=== PATIENT | female | born 1955 | race Caucasian/White ===

== ENCOUNTER 2021-09-27 06:02 | Observation (INO) | payer MEDICARE ==
[2021-09-27] MEDS ORDERED: ASPIRIN 81 MG PO STA (06:10)
[2021-09-27] MEDS ORDERED: HEPARIN SODIUM 1,000 UN/ML (10ML VL) IV PRN (06:33)
[2021-09-27] MEDS ORDERED: HEPARIN SODIUM 1,000 UN/ML (10ML VL) IV ONE (06:33)
[2021-09-27] MEDS ORDERED: DILTIAZEM DRIP BOLUS FROM BAG 1 MG SOLN IV ONE (06:34)
[2021-09-27 06:37] LABS: Basophils # (A) 0.2 k/uL (0-0.2); Basophils % (A) 1 %; Eosinophils # (A) 0.3 k/uL (0-0.7); Eosinophils % (A) 2 %; HCT 46.1 % (34.0-46.0); HGB 15.2 gm/dL (11.4-16.0); Lymphocytes % (A) 18 %; MCH 30.6 pg (25.0-35.0); MCV 92.9 fL (80.0-100.0); Mean Platelet Volume 7.4; Monocytes # (A) 0.8 k/uL (0-1.0); Monocytes % (A) 5 %; Neutrophils # (A) 12.2 k/uL (1.3-7.7); Neutrophils % (A) 73 %; Platelet Count 288 k/uL (150-450); RBC 4.96 m/uL (3.80-5.40); RDW 13.1 % (11.5-15.5); WBC 16.7 k/uL (3.8-10.6)
[2021-09-27] MEDS ORDERED: DILTIAZEM 125 MG in SODIUM CHLORIDE 0.9% 100 ML IV SCH (06:45)
--- NOTE | 2021-09-27 06:45 | ED ---
Chest Pain HPI - General Chief Complaint: Chest Pain Stated Complaint: Chest pain Time Seen by Provider: 09/27/21 06:02 Source: patient, RN notes reviewed Mode of arrival: wheelchair Limitations: no limitations - History of Present Illness Initial Comments: This a 66-year-old female presents emergency Department chief complaint of chest pain, palpitations. Patient states that she woke up a few hours ago felt like her heart was racing felt some pressure in excess states that she felt short of breath. She states she does have a history of PVCs which cause states she sometimes. She states it felt a little worse and she had more pressure and shortness of breath than usual. Patient states it does seem to wax and wane she try to get up and walk around but did not makes symptoms better. She denies any pain rating to her back or jaw. She does state that she takes atenolol, losartan and a statin. Patient denies any nausea vomiting no leg pain or leg swelling. Patient has no history of irregular heartbeat patient has had no prior myocardial infarction - Related Data Home Medications Medication Instructions Recorded Confirmed Cyanocobalamin (Vitamin B-12) 1,000 mcg PO DAILY 09/27/21 09/27/21 [Vitamin B-12] Losartan [Cozaar] 25 mg PO DAILY 09/27/21 09/27/21 Meloxicam [Mobic] 7.5 mg PO BID PRN 09/27/21 09/27/21 Multivitamins, Thera [Multivitamin 1 tab PO DAILY 09/27/21 09/27/21 (formulary)] Rosuvastatin Calcium 5 mg PO DAILY 09/27/21 09/27/21 atenoloL [Tenormin] 25 mg PO DAILY 09/27/21 09/27/21 Allergies Allergy/AdvReac Type Severity Reaction Status Date / Time ciprofloxacin [From Cipro] Allergy Unknown Verified 09/27/21 07:21 Iodinated Contrast Media Allergy Rash/Hives Verified 09/27/21 07:21 iodine Allergy Rash/Hives Verified 09/27/21 07:21 morphine Allergy Rash/Hives Verified 09/27/21 07:21 phenazopyridine Allergy Unknown Verified 09/27/21 07:21 [From Pyridium] tetanus and diphtheria Allergy Rash/Hives Verified 09/27/21 07:21 toxoids Influenza Virus Vaccines AdvReac Unknown Verified 09/27/21 07:21 Review of Systems ROS Statement: Those systems with pertinent positive or pertinent negative responses have been documented in the HPI. ROS Other: All systems not noted in ROS Statement are negative. EKG Findings - EKG Comments: EKG Findings:: EKG performed at 6:28 atrial fibrillation with RVR rate of 141 QRS 83 QT/QTC 292/374 Past Medical History Past Medical History: Cancer, Chest Pain / Angina, Hypertension Additional Past Medical History / Comment(s): PVC's, melanoma skin History of Any Multi-Drug Resistant Organisms: None Reported Past Surgical History: Appendectomy, Hysterectomy, Orthopedic Surgery Past Psychological History: No Psychological Hx Reported Smoking Status: Never smoker Past Alcohol Use History: None Reported Past Drug Use History: None Reported General Exam Limitations: no limitations General appearance: alert, in no apparent distress Head exam: Present: atraumatic, normocephalic, normal inspection Eye exam: Present: normal appearance, PERRL, EOMI. Absent: scleral icterus, conjunctival injection, periorbital swelling ENT exam: Present: normal exam, normal oropharynx, mucous membranes moist Neck exam: Present: normal inspection, full ROM. Absent: tenderness, meningismus, lymphadenopathy Respiratory exam: Present: normal lung sounds bilaterally. Absent: respiratory distress, wheezes, rales, rhonchi, stridor Cardiovascular Exam: Present: tachycardia, irregular rhythm, normal heart sounds. Absent: regular rate, normal rhythm, systolic murmur, diastolic murmur, rubs, gallop, clicks Extremities exam: Absent: pedal edema Neurological exam: Present: alert, oriented X3 Skin exam: Present: warm, dry, intact, normal color. Absent: rash Course Vital Signs 09/27/21 09/27/21 06:03 07:04 Temperature 98.6 F Pulse Rate 115 H 77 Respiratory 16 18 Rate Blood Pressure 136/88 106/84 O2 Sat by Pulse 97 94 L Oximetry Chest Pain MDM - MDM 66-year-old presented for chest pain palpitations. Patient is found to be in A. fib with RVR, rate of 141 patient's was ordered heparin bolus, confusion along with Cardizem bolus and infusion. Patient did ultimately convert to normal sinus rhythm at this time. She is left on Cardizem low dose. Patient's labwork reveals no significant findings. Patiently admitted for cardiology evaluation, echocardiogram Critical Care Time Critical Care Time: Yes Total Critical Care Time: 35 Disposition Clinical Impression: New onset atrial fibrillation, Atrial fibrillation with RVR, Chest pain Disposition: ADMITTED IP TO THIS HOSP Condition: Fair Referrals: Alfredo De La Fuente DO [Primary Care Provider] - 1-2 days
[2021-09-27] MEDS: HEPARIN SOD,PORK IN 0.45% NACL 25,000 UNIT in 0.45% NACL 1 250ML.BAG IV SCH (06:46)
[2021-09-27 06:47] LABS: INR 0.9 (<1.2); Prothrombin Time 10.2 sec (9.0-12.0)
[2021-09-27 07:10] LABS: ALT 41 U/L (4-34); African American GFR (CKD) >90 (>60 ml/min/1.73 sqM); Anion Gap 9 mmol/L; Blood Urea Nitrogen 19 mg/dL (7-17); Calcium 9.8 mg/dL (8.4-10.2); Carbon Dioxide 25 mmol/L (22-30); Chloride 104 mmol/L (98-107); Glucose 183 mg/dL (74-99); Lipase 112 U/L (23-300); Non-African American GFR(CKD) >90 (>60 ml/min/1.73 sqM); Sodium 138 mmol/L (137-145)
--- NOTE | 2021-09-27 07:15 | XR ---
EXAMINATION TYPE: XR chest 2V DATE OF EXAM: 09/27/2021 COMPARISON: None HISTORY: 66-year-old female with chest pain TECHNIQUE: PA and lateral views FINDINGS: Heart upper limits of normal in size. Mild atherosclerotic arch calcifications. Some strandy atelecta sis in the lower lungs. No consolidation or pleural effusion. IMPRESSION: Borderline heart size. Some strandy basilar areas of atelectasis. No acute process seen.
[2021-09-27 07:16] LABS: AST 53 U/L (14-36); Albumin 4.5 g/dL (3.5-5.0); Magnesium 1.9 mg/dL (1.6-2.3); Potassium 5.1 mmol/L (3.5-5.1); Total Protein 8.1 g/dL (6.3-8.2)
[2021-09-27 07:17] LABS: Alkaline Phosphatase 81 U/L (38-126)
[2021-09-27] MEDS ORDERED: NITROGLYCERIN SL TABS 0.4 MG TAB SUBLINGUAL PRN (08:33)
[2021-09-27] MEDS ORDERED: NALOXONE 0.4 MG/ML 1 ML VIAL IVP PRN (10:17)
--- NOTE | 2021-09-27 10:37 | P.HPIM ---
History of Present Illness H&P Date: 09/27/21 History of Presenting Illness: Patient is a a very pleasant 66-year-old female with a past medical history of hypertension, hyperlipidemia, and melanoma. She presented to the emergency department with a chief complaint of chest pressure, neck pain, shortness of breath, and palpitations. Patient reports upon awakening she felt pressure to her midsternal chest, difficulty catching her breath and a feeling as though her heart was racing out of her chest. Patient states she is intermittently been experiencing palpitations and pain in her neck over the past 3 weeks, she states she believed she thought these were her PVCs that she has a history of PVCs in about 3 weeks ago drinks some tea not realizing and had caffeine and has since been experiencing what she thought to be intermittent PVCs along with some neck pain. Patient reports today was different as upon awakening she first noticed pressure in her chest accompanied by pain in her neck, difficulty catching her b reath and realize that her heart was racing. She denies having any recent infections, fevers, chills, headache, lightheadedness, dizziness, nausea, vomiting, or experiencing any numbness/tingling/weakness in her extremities. Patient underwent full evaluation in the emergency department. CBC showing leukocytosis with WBC count of 16.7, CMP revealing slight elevation of AST of 53 and ALT of 41. Troponin negative at less than 0.012. ProBNP 258. Coags normal findings. Chest x-ray revealing borderline heart size and some strandy basilar areas of atelectasis, but negative for acute cardiopulmonary process. EKG completed revealing A. fib RVR at 141 bpm. patient was started on IV heparin and Cardizem infusion. Patient converted back into normal sinus rhythm with repeat EKG confirming sinus rhythm at 77 bpm with no noted T-wave or ST abnormalities, showing no signs of acute ischemia. Patient converted back into normal sinus rhythm, she reports significant improvement in chest pressure/neck pain but reports still feeling some underlying discomfort in which she currently rates as 2-3/10 and again just describes as a pressure/achiness. Patient is admitted under our services with consult cardiology. Review of systems: Pertinent positives and negatives as discussed in HPI, a complete review of systems was performed and all other systems are negative. Physical exam: Vital signs reviewed and stable. General: Nontoxic, no distress and appears stated age. Derm: Skin warm and dry, normal coloration for ethnicity. Head: Atraumatic, normocephalic and symmetric. Eyes: EOMs intact, no lid lag, and anicteric sclera Mouth: no lip lesions, mucus membranes moist Cardiovascular: regular rate and rhythm with normal S1S2, no murmur, positive posterior tibial pulses bilaterally, and cap refill < 2 seconds. Lungs: Respirations even, regular, and unlabored on room air. Lungs CTA b ilaterally, no rhonchi, no rales, no wheezing, and no accessory muscle usage. Abdominal: soft, nontender to palpation, no guarding, no appreciable organomegaly Ext: ROM intact. No gross muscle atrophy, no edema, no contractures Neuro: Speech clear, face symmetrical and CN II-XII grossly intact with no noted focal neuro deficits Psych: Alert and oriented to person, place, time, and situation. Appropriate and pleasant affect. Assessment and Plan of Care: Atrial fibrillation with RVR, new onset Chest pressure, shortness of breath, and palpitations likely secondary to above -Initial EKG completed revealing A. fib RVR at 141 bpm. -Troponin negative at less than 0.012. We will trend troponins every 3 hours 2. -Anticoagulation with Heparin infusion, Eliquis prescription was sent to [facility] for gonzalez check -Cardizem infusion, patient started on oral Cardizem 30 mg 4 times a day and Cardizem infusion to be stopped 30 minutes after receiving first oral dose. -Echocardiogram to be completed. -Telemetry monitoring -Cardiology consulted, awaiting recommendations Hypertension -Monitor vital signs and continue daily medication regimen with atenolol and losartan. Hyperlipidemia -Continue daily medication regimen with atorvastatin 10 mg daily The patient is admitted with an anticipated less than 2 midnight stay for evaluation of chest pain, palpitations with diagnosis of new onset A. fib RVR. CODE STATUS: Full code DVT prophylaxis: Heparin Discussed with: Patient, patient's , and RN Anticipated discharge date: Tomorrow morning Anticipated discharge place: Home A total of 44 minutes was spent on the care of this complex patient more than 50% of the time was spent in counseling and care coordination. I reviewed the documentation as provided by the HELDER above, who is the original author of this note. I agree with the documented assessment and plan, with the following changes: None Past Medical History Past Medical History: Cancer, Chest Pain / Angina, Hypertension Additional Past Medical History / Comment(s): PVC's, melanoma skin History of Any Multi-Drug Resistant Organisms: None Reported Past Surgical History: Appendectomy, Hysterectomy, Orthopedic Surgery Past Psychological History: No Psychological Hx Reported Smoking Status: Never smoker Past Alcohol Use History: None Reported Past Drug Use History: None Reported - Past Family History Father Family Medical History: Coronary Artery Disease (CAD) Additional Family Medical History / Comment(s): CABG Mother Family Medical History: Coronary Artery Disease (CAD) Additional Family Medical History / Comment(s): CABG Medications and Allergies Home Medications Medication Instructions Recorded Confirmed Type Apixaban [Eliquis Starter Pack 5 - 10 mg PO DIRECTED 30 Days 09/27/21 Rx (for VTE)] #1 each Cyanocobalamin (Vitamin B-12) 1,000 mcg PO DAILY 09/27/21 09/27/21 History [Vitamin B-12] Losartan [Cozaar] 25 mg PO DAILY 09/27/21 09/27/21 History Meloxicam [Mobic] 7.5 mg PO BID PRN 09/27/21 09/27/21 History Multivitamins, Thera [Multivitamin 1 tab PO DAILY 09/27/21 09/27/21 History (formulary)] Rosuvastatin Calcium 5 mg PO DAILY 09/27/21 09/27/21 History atenoloL [Tenormin] 25 mg PO DAILY 09/27/21 09/27/21 History Allergies Allergy/AdvReac Type Severity Reaction Status Date / Time ciprofloxacin [From Cipro] Allergy Unknown Verified 09/27/21 07:21 Iodinated Contrast Media Allergy Rash/Hives Verified 09/27/21 07:21 iodine Allergy Rash/Hives Verified 09/27/21 07:21 morphine Allergy Rash/Hives Verified 09/27/21 07:21 phenazopyridine Allergy Unknown Verified 09/27/21 07:21 [From Pyridium] tetanus and diphtheria Allergy Rash/Hives Verified 09/27/21 07:21 toxoids Influenza Virus Vaccines AdvReac Unknown Verified 09/27/21 07:21 Physical Exam Osteopathic Statement: *. No significant issues noted on an osteopathic structural exam other than those noted in the History and Physical/Consult. Vitals: Vital Signs Temp Pulse Resp BP Pulse Ox 09/27/21 07:04 77 18 106/84 94 L 09/27/21 06:03 98.6 F 115 H 16 136/88 97 Intake and Output 09/26/21 09/27/21 09/27/21 22:59 06:59 14:59 Other: Weight 120.202 kg Results CBC & Chem 7: 09/27/21 06:27 09/27/21 06:27 Labs: Abnormal Lab Results - Last 24 Hours (Table) 09/27/21 09/27/21 Range/Units 06:27 06:27 WBC 16.7 H (3.8-10.6) k/uL Hct 46.1 H (34.0-46.0) % Neutrophils # 12.2 H (1.3-7.7) k/uL BUN 19 H (7-17) mg/dL Glucose 183 H (74-99) mg/dL AST 53 H (14-36) U/L ALT 41 H (4-34) U/L
[2021-09-27] MEDS: DILTIAZEM ORAL 30 MG TAB PO SCH ×2 (10:50→14:13)
--- NOTE | 2021-09-27 11:41 | ECHOF ---
Referral Reason: MEASUREMENTS -------- HEIGHT: 170.2 cm WEIGHT: 120.2 kg BP: RVIDd: 3.0 cm (< 3.3) IVSd: 1.3 cm (0.6 - 1.1) LVIDd: 3.8 cm (3.9 - 5.3) LVPWd: 1.7 cm (0.6 - 1.1) IVSs: 1.5 cm LVIDs: 2.5 cm LVPWs: 1.7 cm LAESV Index (A-L): 23.27 ml/m Ao Diam: 4.0 cm (2.0 - 3.7) AV Cusp: 2.5 cm (1.5 - 2.6) LA Diam: 4.0 cm (2.7 - 3.8) MV E Ryan: 0.45 m/s MV DecT: 208 ms MV A Ryan: 0.58 m/s MV E/A Ratio: 0.77 RAP: 5.00 mmHg RVSP: 28.23 mmHg FINDINGS -------- Sinus rhythm. This was a technically difficult study with suboptimal views. The left ventricular size is normal. There is mild concentric left ventricular hypertrophy. Overa ll left ventricular systolic function is normal with, an EF between 55 - 60 %. The right ventricle is normal in size. Normal LA size by volume 22+/-6 ml/m2. The right atrium was not well visualized. 5.0mg of Lumason was utilized for enhancement of images The aortic valve was not well visualized. There is no evidence of aortic regurgitation. There is no evidence of aortic stenosis. The mitral valve was not well visualized. Mild mitral regurgitation is present. The tricuspid valve was not well visualized. Mild tricuspid regurgitation present. There is no ev idence of pulmonary hypertension. The right ventricular systolic pressure, as measured by Doppler, is 28.23mmHg. The pulmonic valve was not well visualized. There is no pulmonic regurgitation present. The aortic root is mildy dilated. IVC Not well visulized. Echo free space represents a pericardial fat pad. CONCLUSIONS -------- 1. This was a technically difficult study with suboptimal views. 2. There is mild concentric left ventricular hypertrophy. 3. Overall left ventricular systolic function is normal with, an EF between 55 - 60 %. 4. The aortic valve was not well visualized. 5. Mild mitral regurgitation is present. 6. Mild tricuspid regurgitation present. 7. The aortic root is mildy dilated. STRATEGIC ACCOUNTS MANAGER: Nan Gunn RDCS
[2021-09-27] MEDS ORDERED: DILTIAZEM ORAL 30 MG TAB PO STA (15:01)
[2021-09-27] MEDS: DILTIAZEM ORAL 60 MG TAB PO SCH ×2 (18:27→21:40)
[2021-09-27 19:45] LABS: Glucose,Whole Blood 307 mg/dL (75-99)
[2021-09-28 03:45] LABS: HCT 41.7 % (34.0-46.0); HGB 13.4 gm/dL (11.4-16.0); MCH 30.3 pg (25.0-35.0); MCHC 32.1 g/dL (31.0-37.0); MCV 94.4 fL (80.0-100.0); Mean Platelet Volume 7.4; Platelet Count 243 k/uL (150-450); RBC 4.42 m/uL (3.80-5.40); RDW 13.3 % (11.5-15.5); WBC 12.6 k/uL (3.8-10.6)
[2021-09-28 04:05] LABS: Partial Thromboplastin Time 65.7 sec (22.0-30.0); Prothrombin Time 10.9 sec (9.0-12.0)
[2021-09-28 04:18] LABS: ALT 30 U/L (4-34); AST 31 U/L (14-36); African American GFR (CKD) >90 (>60 ml/min/1.73 sqM); Albumin 3.7 g/dL (3.5-5.0); Alkaline Phosphatase 73 U/L (38-126); Anion Gap 8 mmol/L; Blood Urea Nitrogen 18 mg/dL (7-17); Calcium 9.2 mg/dL (8.4-10.2); Carbon Dioxide 24 mmol/L (22-30); Chloride 103 mmol/L (98-107); Glucose 176 mg/dL (74-99); Non-African American GFR(CKD) >90 (>60 ml/min/1.73 sqM); Potassium 4.4 mmol/L (3.5-5.1); Sodium 135 mmol/L (137-145); Total Bilirubin 0.8 mg/dL (0.2-1.3); Total Protein 6.4 g/dL (6.3-8.2)
[2021-09-28] MEDS: HEPARIN SOD,PORK IN 0.45% NACL 25,000 UNIT in 0.45% NACL 1 250ML.BAG IV SCH (05:17)
[2021-09-28 06:09] LABS: Glucose,Whole Blood 182 mg/dL (75-99)
[2021-09-28] MEDS ORDERED: atenoloL 25 MG TAB PO SCH (09:00)
[2021-09-28] MEDS ORDERED: ASPIRIN 325 MG TAB PO SCH (09:00)
[2021-09-28] MEDS: ATORVASTATIN 10 MG TAB PO SCH (09:33)
[2021-09-28] MEDS: LOSARTAN 25 MG TAB PO SCH (09:33)
[2021-09-28] MEDS: DILTIAZEM ORAL 60 MG TAB PO SCH (09:33)
[2021-09-28] MEDS: APIXABAN 5 MG TAB PO SCH ×2 (09:33→20:38)
[2021-09-28 10:49] LABS: LDL Cholesterol,Calculated 40.3 mg/dL (0.0-131.0)
[2021-09-28] MEDS: FLECAINIDE 50 MG TAB PO SCH ×2 (11:00→20:37)
[2021-09-28 11:46] LABS: Glucose,Whole Blood 155 mg/dL (75-99)
--- NOTE | 2021-09-28 11:55 | P.CRDCN ---
History of Present Illness History of present illness: HISTORY OF PRESENTING ILLNESS This is a [id number] female past medical history significant for hypertension, hyperlipidemia, PVCs, and melanoma. 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 We have been asked to see in consultation for atrial fibrillation with rapid ventricular response. Patient presents emergency department with complaints of chest pain, neck pain, shortness of breath and palpitations. Patient states that yesterday she woke up around 3AM and felt pressure/heaviness in upper chest and jaw. She states she felt some mild short of breath and also fluttering/palpitations. She has been experiencing intermittent palpitations and pain in her neck for the past 3 weeks, thought it was her PVCs like she has had in the past. She states this was worse than prior and presented to the emergency department for further evaluation. Patient was initially started on IV Ca rdizem. Given 10mg IV Bolus and started on drip 5mg/hr. and IV heparin. She was transitioned to PO Cardizem, currently on 60mg QID. She converted to normal sinus rhythm overnight. Former smoker quit in her 20s. She denies any alcohol use or illicit drug use. She states her does tell her she snores, she states she doesnt sleep well but attributes it to insomnia not a breathing issue. She denies any history of CAD, CT, stroke, diabetes. States she is a pre- diabetic prior. Family history includes mother had an CT with CABG in her 60s, father with his first CT at 55 and has had stenting and CABG. Sister recently had a CABG she is in her late 60s. DIAGNOSTICS EKG reveals atrial fibrillation with rapid ventricular response, heart rate 141. Repeat EKG in sinus rhythm HR 83, nonspecific ST-T abnormalities in lead III, no acute ischemia noted. Echo revealed EF 55-60%, no significant wall motion abnormalities Telemetry tracings indicate sinus mechanism HR 70s-80s Chest xray no acute cardiopulmonary process Laboratory reviewed, troponin negative, WBC 12.6, hemoglobin 13.4, platelets 243, sodium 135, potassium 4.4, BUN 18, serum crit 0.5 Current home medications include atenolol 25 mg daily, rosuvastatin 5 mg daily, losartan 25 mg daily REVIEW OF SYSTEMS At the time of my exam: CONSTITUTIONAL: Denies fever or chills. CARDIOVASCULAR: Denies chest pain, shortness of breath, orthopnea, PND or palpitations. RESPIRATORY: Denies cough. GASTROINTESTINAL: Denies abdominal pain, diarrhea, constipation, nausea or vomiting. MUSCULOSKELETAL: Denies myalgias. NEUROLOGIC: Denies numbness, tingling, headacbe or weakness. ENDOCRINE: Denies fatigue, weight change, polydipsia or polyurina. GENITOURINARY: Denies burning, hematuria or urgency with micturation. HEMATOLOGIC: Denies history of anemia or bleeding. PHYSICAL EXAMINATION Vitals Reviewed CONSTITUTIONAL: No apparent distress. HEENT: Head is normocephalic. Pupils are equal, round. Sclerae anicteric. Mucous membranes of the mouth are moist. No JVD. No carotid bruit. CHEST EXAMINATION: Lungs are clear to auscultation. No chest wall tenderness is noted on palpation or with deep breathing. HEART EXAMINATION: Regular rate and rhythm. S1, S2 heard. No murmurs, gallops or rub. ABDOMEN: Soft, nontender. Positive bowel sounds. EXTREMITIES: 2+ peripheral pulses, no lower extremity edema and no calf tenderness. SKIN: warm, dry NEUROLOGIC EXAMINATION: Patient is awake, alert and oriented x3. ASSESSMENT New onset paroxysmal atrial fibrillation with rapid ventricular response -[id number] score 3 History of hypertension Dyslipidemia History of frequent PVCs PLAN Check TSH Recommend discontinuing cardizem Increase atenolol 50mg daily Start Flecainide 100mg BID Eliquis 5mg BID, Case management consulted for coverage, $43.50/month copay Repeat EKG in the morning 09/29/21 Continue Cardiac telemetry If patient remains stable and EKG with no acute findings in the morning, ok to discharge on 09/29/21. Follow up outpatient with Dr. Dixon Nurse practitioner note has been reviewed by physician. Signing provider agrees with the documented findings, assessment, and plan of care. Past Medical History Past Medical History: Cancer, Chest Pain / Angina, Hypertension Additional Past Medical History / Comment(s): PVC's, melanoma skin History of Any Multi-Drug Resistant Organisms: None Reported Past Surgical History: Appendectomy, Hysterectomy, Orthopedic Surgery Additional Past Surgical History / Comment(s): Melanoma removed R lower leg, bilateral total knee arthroplasties, L ear surgery d/t injury as a child, bladder suspension, colonoscopy/polypectomy. Past Anesthesia/Blood Transfusion Reactions: No Reported Reaction Past Psychological History: No Psychological Hx Reported Smoking Status: Never smoker Past Alcohol Use History: None Reported Past Drug Use History: None Reported - Past Family History Father Family Medical History: Coronary Artery Disease (CAD) Additional Family Medical History / Comment(s): CABG Mother Family Medical History: Coronary Artery Disease (CAD) Additional Family Medical History / Comment(s): CABG Medications and Allergies Home Medications Medication Instructions Recorded Confirmed Type Cyanocobalamin (Vitamin B-12) 1,000 mcg PO DAILY 09/27/21 09/27/21 History [Vitamin B-12] Losartan [Cozaar] 25 mg PO DAILY 09/27/21 09/27/21 History Multivitamins, Thera [Multivitamin 1 tab PO DAILY 09/27/21 09/27/21 History (formulary)] Rosuvastatin Calcium 5 mg PO DAILY 09/27/21 09/27/21 History atenoloL [Tenormin] 25 mg PO DAILY 09/27/21 09/27/21 History Apixaban [Eliquis] 5 mg PO BID 30 Days #60 tab 09/28/21 Rx Diltiazem Cd [Cardizem CD] 240 mg PO DAILY 30 Days #30 cap 09/28/21 Rx Allergies Allergy/AdvReac Type Severity Reaction Status Date / Time ciprofloxacin [From Cipro] Allergy Unknown Verified 09/27/21 07:21 Iodinated Contrast Media Allergy Rash/Hives Verified 09/27/21 07:21 iodine Allergy Rash/Hives Verified 09/27/21 07:21 morphine Allergy Rash/Hives Verified 09/27/21 07:21 phenazopyridine Allergy Unknown Verified 09/27/21 07:21 [From Pyridium] tetanus and diphtheria Allergy Rash/Hives Verified 09/27/21 07:21 toxoids Influenza Virus Vaccines AdvReac Unknown Verified 09/27/21 07:21 Physical Exam Vitals: Vital Signs Temp Pulse Pulse Resp BP BP Pulse Ox 09/27/21 12:00 97.6 F 116 H 18 120/77 95 09/27/21 11:07 101 H 18 97 09/27/21 10:48 98.0 F 90 18 121/95 96 09/27/21 07:04 77 18 106/84 94 L 09/27/21 06:03 98.6 F 115 H 16 136/88 97 Intake and Output 09/26/21 09/27/21 09/27/21 22:59 06:59 14:59 Intake Total 74.007 Balance 74.007 Intake: Intake, IV Titration 74.007 Amount Heparin Sod,Pork in 0.45% 74.007 NaCl 25,000 unit In 0.45 % NaCl 1 250ml.bag @ 8.32 UNITS/KG/HR 10.001 mls/ hr IV .Q24H [facility] Rx#: [id number] Other: Weight 120.202 kg 120.202 kg Results 09/28/21 03:23 09/28/21 03:23 Cardiac Enzymes 09/27/21 09/27/21 09/27/21 Range/Units 06:27 06:27 10:04 AST 53 H (14-36) U/L Troponin I <0.012 <0.012 (0.000-0.034) ng/mL 09/27/21 Range/Units 12:00 AST (14-36) U/L Troponin I <0.012 (0.000-0.034) ng/mL Coagulation 09/27/21 09/27/21 Range/Units 06:27 12:00 PT 10.2 (9.0-12.0) sec APTT 24.0 33.8 H (22.0-30.0) sec CBC 09/27/21 Range/Units 06:27 WBC 16.7 H (3.8-10.6) k/uL RBC 4.96 (3.80-5.40) m/uL Hgb 15.2 (11.4-16.0) gm/dL Hct 46.1 H (34.0-46.0) % Plt Count 288 (150-450) k/uL Comprehensive Metabolic Panel 09/27/21 Range/Units 06:27 Sodium 138 (137-145) mmol/L Potassium 5.1 (3.5-5.1) mmol/L Chloride 104 (98-107) mmol/L Carbon Dioxide 25 (22-30) mmol/L BUN 19 H (7-17) mg/dL Creatinine 0.55 (0.52-1.04) mg/dL Glucose 183 H (74-99) mg/dL Calcium 9.8 (8.4-10.2) mg/dL AST 53 H (14-36) U/L ALT 41 H (4-34) U/L Alkaline Phosphatase 81 (38-126) U/L Total Protein 8.1 (6.3-8.2) g/dL Albumin 4.5 (3.5-5.0) g/dL Current Medications Generic Name Dose Route Start Last Admin Trade Name Freq PRN Reason Stop Dose Admin Aspirin 325 mg 09/28/21 09:00 Aspirin 325 Mg Tab PO DAILY [facility] Atenolol 25 mg 09/28/21 09:00 Atenolol 25 Mg Tab PO DAILY [facility] Atorvastatin Calcium 10 mg 09/28/21 09:00 Atorvastatin 10 Mg Tab PO DAILY [facility] Diltiazem HCl 30 mg 09/27/21 10:18 09/27/21 14:13 Diltiazem Oral 30 Mg Tab PO 30 mg QID [facility] Administration Heparin Sodium (Porcine) 0 unit 09/27/21 06:33 Heparin Sodium 1,000 Un/Ml (10ml Vl) IV PER PROTOCOL PRN Low PTT Protocol Heparin Sodium/Sodium Chloride 250 mls @ 10.001 mls/hr 09/27/21 06:45 09/27/21 14:10 25,000 unit/ Sodium Chloride IV 11 units/kg/hr .Q24H [facility] 13.222 mls/hr Titration Protocol 8.32 UNITS/KG/HR Losartan Potassium 25 mg 09/28/21 09:00 Losartan 25 Mg Tab PO DAILY [facility] Naloxone HCl 0.2 mg 09/27/21 10:17 Naloxone 0.4 Mg/Ml 1 Ml Vial IVP Q2M PRN Opioid Reversal Nitroglycerin 0.4 mg 09/27/21 08:33 Nitroglycerin Sl Tabs 0.4 Mg Tab SUBLINGUAL Q5M PRN Chest Pain Intake and Output 09/26/21 09/27/21 09/27/21 22:59 06:59 14:59 Intake Total 74.007 Balance 74.007 Intake: Intake, IV Titration 74.007 Amount Heparin Sod,Pork in 0.45% 74.007 NaCl 25,000 unit In 0.45 % NaCl 1 250ml.bag @ 8.32 UNITS/KG/HR 10.001 mls/ hr IV .Q24H [facility] Rx#: [id number] Other: Weight 120.202 kg 120.202 kg Patient Weight 09/28/21 06:59 Weight 120.202 kg 09/27/21 06:27 09/27/21 06:27
--- NOTE | 2021-09-28 13:14 | P.PN ---
Subjective Progress Note Date: 09/28/21 Hospital course: Patient is a a very pleasant 66-year-old female with a past medical history of hypertension, hyperlipidemia, and melanoma. She presented to the emergency department with a chief complaint of chest pressure, neck pain, shortness of breath, and palpitations. Patient reports upon awakening she felt pressure to her midsternal chest, difficulty catching her breath and a feeling as though her heart was racing out of her chest. Patient states she is intermittently been experiencing palpitations and pain in her neck over the past 3 weeks, she states she believed she thought these were her PVCs that she has a history of PVCs in about 3 weeks ago drinks some tea not realizing and had caffeine and has since been experiencing what she thought to be intermittent PVCs along with some neck pain. Patient reports today was different as upon awakening she first noticed pressure in her chest accompanied by pain in her neck, difficulty catching her breath and realize that her heart was racing. She denies having any recent infections, fevers, chills, headache, lightheadedness, dizziness, nausea, vomiting, or experiencing any numbness/tingling/weakness in her extremities. Patient underwent full evaluation in the emergency department. CBC showing leukocytosis with WBC count of 16.7, CMP revealing slight elevation of AST of 53 and ALT of 41. Troponin negative at less than 0.012. ProBNP 258. Coags normal findings. Chest x-ray revealing borderline heart size and some strandy basilar areas of atelectasis, but negative for acute cardiopulmonary process. EKG co mpleted revealing A. fib RVR at 141 bpm. patient was started on IV heparin and Cardizem infusion. Patient converted back into normal sinus rhythm with repeat EKG confirming sinus rhythm at 77 bpm with no noted T-wave or ST abnormalities, showing no signs of acute ischemia. Patient was then started on oral Cardizem and Cardizem infusion was discontinued. Patient also transitioned over to oral anticoagulant with Eliquis. Patient maintaining sinus rhythm and doing well. Echocardiogram showing normal EF between 55 and 60% with mild mitral and tricuspid regurgitation. Lipid profile unremarkable. Cardiology evaluated and made medication changes, starting patient on flecainide and discontinuing oral Cardizem and recommending continued overnight monitoring secondary to medication changes. Physical exam: Patient seen and fully evaluated at bedside this morning. Patient doing well she remains in sinus rhythm with heart rate in the 80s. Patient reports full resolution of chest pain, neck pain, palpitations, and shortness of breath. Patient reports feeling great this morning and denies having any needs. Cardiology evaluated recommending medication changes and started patient on oral flecainide. Plan is to monitor patient overnight with continued telemetry monitoring with plans for discharge home tomorrow morning. Vital signs reviewed and stable. General: Nontoxic, no distress and appears stated age. Derm: Skin warm and dry, normal coloration for ethnicity. Head: Atraumatic, normocephalic and symmetric. Eyes: EOMs intact, no lid lag, and anicteric sclera Mouth: no lip lesions, mucus membranes moist Cardiovascular: regular rate and rhythm with normal S1S2, no murmur, positive posterior tibial pulses bilaterally, and cap refill < 2 seconds. Lungs: Respirations even, regular, and unlabored on room air. Lungs CTA bilaterally, no rhonchi, no rales, no wheezing, and no accessory muscle usage. Abdominal: soft, nontender to palpation, no guarding, no appreciable organomegaly Ext: ROM intact. No gross muscle atrophy, no edema, no contractures Neuro: Speech clear, face symmetrical and CN II-XII grossly intact with no noted focal neuro deficits Psych: Alert and oriented to person, place, time, and situation. Appropriate and pleasant affect. Assessment and Plan of Care: Atrial fibrillation with RVR, new onset Chest pressure, shortness of breath, and palpitations likely secondary to above; resolved -Initial EKG completed revealing A. fib RVR at 141 bpm. -Troponina trended and negative at less than 0.012 x 3 draws. -Transitioned to oral Anticoagulation with Eliquis. -Cardiology following and discontinued Cardizem and started patient on oral flecainide and recommending continued overnight monitoring. -Echocardiogram revealing EF 55-60% with no significant valvular abnormalities. -Telemetry monitoring Hypertension -Monitor vital signs and continue daily medication regimen with atenolol and losartan. Hyperlipidemia -Continue daily medication regimen with atorvastatin 10 mg daily -Lipid profile unremarkable CODE STATUS: Full code DVT prophylaxis: Heparin Discussed with: Patient, patient's , and RN Anticipated discharge date: Tomorrow morning Anticipated discharge place: Home A total of 38 minutes was spent on the care of this complex patient more than 50% of the time was spent in counseling and care coordination. I reviewed the documentation as provided by the HELDER above, who is the original author of this note. I agree with the documented assessment and plan, with the following changes: None Objective - Vital Signs Vital signs: Vital Signs Temp 98.6 F 09/28/21 07:43 Pulse 85 09/28/21 07:43 Resp 20 09/28/21 07:43 BP 120/75 09/28/21 07:43 Pulse Ox 95 09/28/21 07:43 Intake & Output 09/27/21 09/28/21 09/28/21 18:59 06:59 18:59 Intake Total 432.007 245.993 240 Balance 432.007 245.993 240 Weight 120.202 kg Intake: IV 70 Heparin Sod,Pork in 0.45% 70 NaCl 25,000 unit In 0.45 % NaCl 1 250ml.bag @ 8.32 UNITS/KG/HR 10.001 mls/ hr IV .Q24H [facility] Rx#: [id number] Intake, IV Titration 74.007 175.993 Amount Heparin Sod,Pork in 0.45% 74.007 175.993 NaCl 25,000 unit In 0.45 % NaCl 1 250ml.bag @ 8.32 UNITS/KG/HR 10.001 mls/ hr IV .Q24H [facility] Rx#: [id number] Oral 358 240 Other: Voiding Method Toilet Toilet Toilet # Voids 2 - Labs CBC & Chem 7: 09/28/21 03:23 09/28/21 03:23 Labs: Abnormal Lab Results - Last 24 Hours (Table) 09/27/21 09/27/21 09/28/21 Range/Units 12:00 19:44 03:23 WBC (3.8-10.6) k/uL APTT 33.8 H 65.7 H (22.0-30.0) sec Sodium (137-145) mmol/L BUN (7-17) mg/dL Glucose (74-99) mg/dL POC Glucose (mg/dL) 307 H (75-99) mg/dL 09/28/21 09/28/21 09/28/21 Range/Units 03:23 03:23 06:07 WBC 12.6 H (3.8-10.6) k/uL APTT (22.0-30.0) sec Sodium 135 L (137-145) mmol/L BUN 18 H (7-17) mg/dL Glucose 176 H (74-99) mg/dL POC Glucose (mg/dL) 182 H (75-99) mg/dL
[2021-09-28 16:50] LABS: Glucose,Whole Blood 140 mg/dL (75-99)
[2021-09-28 19:53] LABS: Glucose,Whole Blood 160 mg/dL (75-99)
[2021-09-28 21:13] VITALS: RESP 18
[2021-09-29 05:55] LABS: Glucose,Whole Blood 179 mg/dL (75-99)
--- NOTE | 2021-09-29 07:56 | P.DS ---
Providers Date of admission: 09/27/21 08:37 Expected date of discharge: 09/29/21 Attending physician: Ysabel Hubbard DO Consults: 09/27/21 08:33 Consult Physician Urgent Consulting Provider: Damon Salvador Consult Reason/Comments: new onset afib Do you want consulting provider notified?: Yes Primary care physician: [facility] Hospital Course: Discharge Diagnosis: Atrial fibrillation with RVR, new onset. Patient started on oral anticoagulant with Eliquis, antiarrhythmic flecainide and home atenolol dose was increased. Hypertension, Monitor vital signs and continue daily medication regimen with atenolol and losartan. Hyperlipidemia, Continue daily medication regimen with atorvastatin 10 mg daily Hospital Course: Patient is a a very pleasant 66-year-old female with a past medical history of hypertension, hyperlipidemia, and melanoma. She presented to the emergency department with a chief complaint of chest pressure, neck pain, shortness of breath, and palpitations. Patient reports upon awakening she felt pressure to her midsternal chest, difficulty catching her breath and a feeling as though her heart was racing out of her chest. Patient states she is intermittently been experiencing palpitations and pain in her neck over the past 3 weeks, she states she believed she thought these were her PVCs that she has a history of PVCs in about 3 weeks ago drinks some tea not realizing and had caffeine and has since been experiencing what she thought to be intermittent PVCs along with some neck pain. Patient reports today was different as upon awakening she first noticed pressure in her chest accompanied by pain in her neck, difficulty catching her breath and realize that her heart was racing. She denies having any recent infections, fevers, chills, headache, lightheadedness, dizziness, nausea, vomiting, or experiencing any numbness/tingling/weakness in her extremities. Patient underwent full evaluation in the emergency department. CBC showing leukocytosis with WBC count of 16.7, CMP revealing slight elevation of AST of 53 and ALT of 41. Troponin negative at less than 0.012. ProBNP 258. Coags normal findings. Chest x-ray revealing borderline heart size and some strandy basilar areas of atelectasis, but negative for acute cardiopulmonary process. EKG completed revealing A. fib RVR at 141 bpm. patient was started on IV heparin and Cardizem infusion. Patient converted back into normal sinus rhythm with repeat EKG confirming sinus rhythm at 77 bpm with no noted T-wave or ST abnormalities, showing no signs of acute ischemia. Patient was then started on oral Cardizem and Cardizem infusion was discontinued. Patient also transitioned over to oral anticoagulant with Eliquis. Patient maintaining sinus rhythm and doing well. Echocardiogram showing normal EF between 55 and 60% with mild mitral and tricuspid regurgitation. Lipid profile unremarkable. Cardiology evaluated and made medication changes, discontinuing Cardizem and starting patient on flecainide and increasing home atenolol dose. Patient received continued monitoring overnight and remains in normal sinus rhythm and doing well. Patient is free from any chest pain, palpitations, shortness of breath, or dizziness. Patient is medically stable for discharge home at this time. Patient provided with a prescription for atenolol, flecainide, and Eliquis. Physical exam: Vital signs reviewed and stable. General: Nontoxic, no distress and appears stated age. Derm: Skin warm and dry, normal coloration for ethnicity. Head: Atraumatic, normocephalic and symmetric. Eyes: EOMs intact, no lid lag, and anicteric sclera Mouth: no lip lesions, mucus membranes moist Cardiovascular: regular rate and rhythm with normal S1S2, no murmur, positive posterior tibial pulses bilaterally, and cap refill < 2 seconds. Lungs: Respirations even, regular, and unlabored on room air. Lungs CTA bilaterally, no rhonchi, no rales, no wheezing, and no accessory muscle usage. Abdominal: soft, nontender to palpation, no guarding, no appreciable o rganomegaly Ext: ROM intact. No gross muscle atrophy, no edema, no contractures Neuro: Speech clear, face symmetrical and CN II-XII grossly intact with no noted focal neuro deficits Psych: Alert and oriented to person, place, time, and situation. Appropriate and pleasant affect. A total of 40 minutes of time were spent preparing this complex discharge summary. Patient Condition at Discharge: Stable Plan - Discharge Summary Discharge Rx Participant: No New Discharge Prescriptions: New Flecainide [Tambocor] 100 mg PO Q12HR 30 Days #120 tab atenoloL [Tenormin] 50 mg PO DAILY 30 Days #30 tab Apixaban [Eliquis] 5 mg PO BID 30 Days #60 tab Continue Multivitamins, Thera [Multivitamin (formulary)] 1 tab PO DAILY Losartan [Cozaar] 25 mg PO DAILY Rosuvastatin Calcium 5 mg PO DAILY Cyanocobalamin (Vitamin B-12) [Vitamin B-12] 1,000 mcg PO DAILY Discontinued atenoloL [Tenormin] 25 mg PO DAILY Meloxicam [Mobic] 7.5 mg PO BID PRN PRN Reason: Pain Discharge Medication List Cyanocobalamin (Vitamin B-12) [Vitamin B-12] 1,000 mcg PO DAILY 09/27/21 [History] Losartan [Cozaar] 25 mg PO DAILY 09/27/21 [History] Multivitamins, Thera [Multivitamin (formulary)] 1 tab PO DAILY 09/27/21 [H istory] Rosuvastatin Calcium 5 mg PO DAILY 09/27/21 [History] Apixaban [Eliquis] 5 mg PO BID 30 Days #60 tab 09/28/21 [Rx] Flecainide [Tambocor] 100 mg PO Q12HR 30 Days #120 tab 09/29/21 [Rx] atenoloL [Tenormin] 50 mg PO DAILY 30 Days #30 tab 09/29/21 [Rx] Follow up Appointment(s)/Referral(s): Alfredo De La Fuente DO [Primary Care Provider] - 1-2 days Светлана Dixon MD [STAFF PHYSICIAN] - 1 Week Patient Instructions/Handouts: Flecainide (By mouth), Apixaban (By mouth), A- fib (Atrial Fibrillation) (ED) Activity/Diet/Wound Care/Special Instructions: Activity: As tolerated. Take breaks as needed. Diet: Heart healthy and carb consistent diet. Avoid salts, or foods with hidden salts such as canned or boxed foods and frozen dinners. Extra salt makes your heart work harder and traps the fluid in your body for longer. Special Instructions: Take all of your medications as directed and remember to keep all of your doctor's appointments and follow-up as needed. You will follow up with your PCP, Dr. De La Fuente, in 1-2 days and with air brush artist Dr. Dixon in 2 weeks. Thank you for allowing us to participate in your care, it was truly a pleasure having you for our patient!!! Copay for Eliquis is $43.50 Discharge Disposition: HOME SELF-CARE
[2021-09-29 08:22] VITALS: BP 130/77; PULSE 88; TEMP 98
[2021-09-29] MEDS: FLECAINIDE 50 MG TAB PO SCH (09:00)
[2021-09-29] MEDS: ATORVASTATIN 10 MG TAB PO SCH (09:00)
[2021-09-29] MEDS: APIXABAN 5 MG TAB PO SCH (09:00)
[2021-09-29] MEDS ORDERED: atenoloL 50 MG TAB PO SCH (09:00)
[2021-09-29] MEDS: LOSARTAN 25 MG TAB PO SCH (09:01)
--- NOTE | 2021-09-29 11:29 | P.PN ---
Subjective This is a [id number] female past medical history significant for hypertension, hyperlipidemia, PVCs, and melanoma. 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 We have been asked to see in consultation for atrial fibrillation with rapid ventricular response. Patient presents emergency department with complaints of chest pain, neck pain, shortness of breath and palpitations. Patient states that yesterday she woke up around 3AM and felt pressure/heaviness in upper chest and jaw. She states she felt some mild short of breath and also fluttering/palpitations. She has been experiencing intermittent palpitations and pain in her neck for the past 3 weeks, thought it was her PVCs like she has had in the past. She states this was worse than prior and presented to the emergency department for further evaluation. Patient was initially started on IV Cardizem. Given 10mg IV Bolus and started on drip 5mg/hr. and IV heparin. She was transitioned to PO Cardizem, currently on 60mg QID. She converted to normal sinus rhythm overnight. Former smoker quit in her 20s. She denies any alcohol use or illicit drug use. She states her does tell her she snores, she states she doesnt sleep well but attributes it to insomnia not a breathing issue. She denies any history of CAD, TN, stroke, diabetes. States she is a pre- diabetic prior. Family history includes mother had an TN with CABG in her 60s, father with his first TN at 55 and has had stenting and CABG. Sister recently had a CABG she is in her late 60s. DIAGNOSTICS EKG reveals atrial fibrillation with rapid ventricular response, heart rate 141. Repeat EKG in sinus rhythm HR 83, nonspecific ST-T abnormalities in lead III, no acute ischemia noted. Echo revealed EF 55-60%, no significant wall motion abnormalities 09/29/2021 Patient seen and examined at bedside, no acute distress. She is maintaining sinus mechanism with heart rate 70s80s, repeat EKG this morning revealed sinus mechanism, heart rate 74, T wave inversion in lead III, QTc 428, AK interval normal. Blood pressures are stable 130/77. She is tolerating flecainide 100mg BID well, also on atenolol 50mg daily, rosuvastatin 5 mg daily, losartan 25 mg daily PHYSICAL EXAMINATION Vitals Reviewed CONSTITUTIONAL: No apparent distress. HEENT: Neck Supple. No JVD. CHEST EXAMINATION: Lungs are clear to auscultation. No chest wall tenderness is noted on palpation or with deep breathing. HEART EXAMINATION: Regular rate and rhythm. S1, S2 heard. No murmurs, gallops or rub. ABDOMEN: Soft, nontender. Positive bowel sounds. EXTREMITIES: 2+ peripheral pulses, no lower extremity edema and no calf tenderness. SKIN: warm, dry NEUROLOGIC EXAMINATION: Patient is awake, alert and oriented x3. ASSESSMENT New onset paroxysmal atrial fibrillation with rapid ventricular response -[id number] score 3, maintaining sinus mechanism, on Eliquis History of hypertension Dyslipidemia History of frequent PVCs PLAN Continue atenolol 50mg daily and Flecainide 100mg BID Eliquis 5mg BID, Case management consulted for coverage, $43.50/month copay From cardiology perspective patient stable to be discharged home. Follow up outpatient with Dr. Dixon Nurse practitioner note has been reviewed by physician. Signing provider agrees with the documented findings, assessment, and plan of care. Objective - Vital Signs Vital signs: Vital Signs Temp 98.0 F 09/29/21 08:00 Pulse 88 09/29/21 08:00 Resp 18 09/29/21 08:00 BP 130/77 09/29/21 08:00 Pulse Ox 94 L 09/29/21 08:00 Intake & Output 09/28/21 09/29/21 09/29/21 18:59 06:59 18:59 Intake Total 462 10 480 Balance 462 10 480 Intake: IV 10 0.9 10 Oral 462 480 Other: Voiding Method Toilet Toilet Toilet # Voids 2 1 - Labs CBC & Chem 7: 09/28/21 03:23 09/28/21 03:23 Labs: Abnormal Lab Results - Last 24 Hours (Table) 09/28/21 09/28/21 09/28/21 Range/Units 11:43 16:45 19:51 POC Glucose (mg/dL) 155 H 140 H 160 H (75-99) mg/dL 09/29/21 Range/Units 05:54 POC Glucose (mg/dL) 179 H (75-99) mg/dL
== END 2021-09-29 11:38 | disposition home or self-care (01) ==
LOC: EC 06:02 → INTOOBSV 08:37 → 3SCARD 08:37
PROVIDERS: ADMIT Internal Medicine; ATTEND Internal Medicine
DX: I48.0 Paroxysmal atrial fibrillation (principal); R07.89 Other chest pain; I11.9 Hypertensive heart disease without heart failure; I08.1 Rheumatic disorders of both mitral and tricuspid valves; I49.3 Ventricular premature depolarization; J98.11 Atelectasis; E78.5 Hyperlipidemia, unspecified; M54.2 Cervicalgia; R73.03 Prediabetes; R74.01 Elevation of levels of liver transaminase levels; D72.829 Elevated white blood cell count, unspecified; G47.00 Insomnia, unspecified; R06.83 Snoring; Z79.1 Long term (current) use of non-steroidal anti-inflammatories (NSAID); Z79.899 Other long term (current) drug therapy; Z88.1 Allergy status to other antibiotic agents; Z91.041 Radiographic dye allergy status; Z88.5 Allergy status to narcotic agent; Z88.7 Allergy status to serum and vaccine; Z88.8 Allergy status to other drugs, medicaments and biological substances; Z91.048 Other nonmedicinal substance allergy status; Z85.820 Personal history of malignant melanoma of skin; Z90.710 Acquired absence of both cervix and uterus; Z90.49 Acquired absence of other specified parts of digestive tract; Z98.890 Other specified postprocedural states; Z87.891 Personal history of nicotine dependence; Z96.653 Presence of artificial knee joint, bilateral; Z86.010 Personal history of colon polyps; Z82.49 Family history of ischemic heart disease and other diseases of the circulatory system
CPT/HCPCS: 96376 ×2; 96366 ×3; 96365; 99291; 36415; 93005; 83880; 80061; 80053 ×2; 84443; 83690; 83735 ×2; 84484; 85025; 85027; 85610 ×2; 85730 ×2; 71046; G0378 ×3; C8929; J1644 ×3; Q9950; 93306

== ENCOUNTER 2021-10-05 10:44 | Observation (INO) | payer MEDICARE ==
--- NOTE | 2021-10-05 11:19 | ED ---
General Adult HPI - General Chief complaint: Arrhythmia/Palpitations Stated complaint: AFib, Chest Pressure, Shortness of Breath Time Seen by Provider: 10/05/21 10:50 Source: patient, RN notes reviewed, old records reviewed Mode of arrival: ambulatory Limitations: no limitations - History of Present Illness Initial comments: This is a 66-year-old female presents emergency department stating that she was recently diagnosis of atrial fibrillation. Patient states she was started on flecainide and Cardizem and had her atenolol increased. Patient states today her heart rate got down to the 40 and went up as high as 109 per patient states she has a pressure sensation with some shortness of breath associated with it. Patient states even though her heart rate is normal now she still has chest pressure some shortness of breath though it's not as bad as it was earlier today. Patient also is on eliquis. Patient denies any fever chills or cough per patient denies any abdominal pain patient has nausea vomiting diarrhea. - Related Data Home Medications Medication Instructions Recorded Confirmed Cyanocobalamin (Vitamin B-12) 1,000 mcg PO DAILY 09/27/21 10/05/21 [Vitamin B-12] Losartan [Cozaar] 25 mg PO DAILY 09/27/21 10/05/21 Multivitamins, Thera [Multivitamin 1 tab PO DAILY 09/27/21 10/05/21 (formulary)] Rosuvastatin Calcium 5 mg PO DAILY 09/27/21 10/05/21 Previous Rx's Medication Instructions Recorded Apixaban [Eliquis] 5 mg PO BID 30 Days #60 tab 09/28/21 Flecainide [Tambocor] 100 mg PO Q12HR 30 Days #120 tab 09/29/21 atenoloL [Tenormin] 50 mg PO DAILY 30 Days #30 tab 09/29/21 Allergies Allergy/AdvReac Type Severity Reaction Status Date / Time ciprofloxacin [From Cipro] Allergy Unknown Verified 10/05/21 13:08 Iodinated Contrast Media Allergy Rash/Hives Verified 10/05/21 13:08 iodine Allergy Rash/Hives Verified 10/05/21 13:08 morphine Allergy Rash/Hives Verified 10/05/21 13:08 phenazopyridine Allergy Unknown Verified 10/05/21 13:08 [From Pyridium] tetanus and diphtheria Allergy Rash/Hives Verified 10/05/21 13:08 toxoids Influenza Virus Vaccines AdvReac Unknown Verified 10/05/21 13:08 Review of Systems ROS Statement: Those systems with pertinent positive or pertinent negative responses have been documented in the HPI. ROS Other: All systems not noted in ROS Statement are negative. Past Medical History Past Medical History: Atrial Fibrillation, Cancer, Chest Pain / Angina, Hypertension Additional Past Medical History / Comment(s): PVC's, melanoma skin History of Any Multi-Drug Resistant Organisms: None Reported Past Surgical History: Appendectomy, Hysterectomy, Orthopedic Surgery Additional Past Surgical History / Comment(s): Melanoma removed R lower leg, bilateral total knee arthroplasties, L ear surgery d/t injury as a child, bladder suspension, colonoscopy/polypectomy. Past Anesthesia/Blood Transfusion Reactions: No Reported Reaction Past Psychological History: No Psychological Hx Reported Smoking Status: Never smoker Past Alcohol Use History: None Reported Past Drug Use History: None Reported - Past Family History Father Family Medical History: Coronary Artery Disease (CAD) Additional Family Medical History / Comment(s): CABG Mother Family Medical History: Coronary Artery Disease (CAD) Additional Family Medical History / Comment(s): CABG General Exam - General Exam Comments Initial Comments: GENERAL: Patient is well-developed and well-nourished. Patient is nontoxic and well- hydrated and is in mild distress. ENT: Neck is soft and supple. No significant lymphadenopathy is noted. Oropharynx is clear. Moist mucous membranes. Neck has full range of motion without eliciting any pain. EYES: The sclera were anicteric and conjunctiva were pink and moist. Extraocular movements were intact and pupils were equal round and reactive to light. Eyelids were unremarkable. PULMONARY: Unlabored respirations. Good breath sounds bilaterally. CARDIOVASCULAR: There is a regular rate and rhythm without any murmurs gallops or rubs. ABDOMEN: Soft and nontender with normal bowel sounds. No palpable organomegaly was noted. There is no palpable pulsatile mass. SKIN: Skin is clear with no lesions or rashes and otherwise unremarkable. NEUROLOGIC: Patient is alert and oriented x3. Cranial nerves II through XII are grossly intact. Motor and sensory are also intact. Normal speech, volume and content. Symmetrical smile. MUSCULOSKELETAL: Normal extremities with adequate strength and full range of motion. LYMPHATICS: No significant lymphadenopathy is noted PSYCHIATRIC: Normal psychiatric evaluation. Limitations: no limitations Course Vital Signs 10/05/21 10/05/21 10/05/21 10:48 11:00 11:07 Temperature 98.5 F Pulse Rate 50 L 64 Pulse Rate [ 63 Underwriting Consultant ] Respiratory 20 18 Rate Blood Pressure 221/148 146/81 O2 Sat by Pulse 97 98 Oximetry 10/05/21 12:27 Temperature Pulse Rate 61 Pulse Rate [ Underwriting Consultant ] Respiratory 18 Rate Blood Pressure 128/74 O2 Sat by Pulse 96 Oximetry Medical Decision Making - Medical Decision Making EKG shows sinus rhythm at 63 bpm NM interval is 190 QRS is 92 QT interval 450 QTC is 423. Patient's EKG shows no ST segment elevation or depression Chest x-ray shows no acute abnormality. Patient continued to have chest pain which she described as pressure in the emergency department even though she was in sinus rhythm and in the 60s heart rate I spoke with Dr. Hubbard she agreed to admit the patient admitted the patient wrote admitting orders. - Lab Data Result diagrams: 10/05/21 11:27 10/05/21 11:27 Lab Results 10/05/21 10/05/21 10/05/21 Range/Units 11:27 11:27 11:27 WBC 12.3 H (3.8-10.6) k/uL RBC 5.02 (3.80-5.40) m/uL Hgb 14.8 (11.4-16.0) gm/dL Hct 46.5 H (34.0-46.0) % MCV 92.5 (80.0-100.0) fL MCH 29.4 (25.0-35.0) pg MCHC 31.8 (31.0-37.0) g/dL RDW 13.3 (11.5-15.5) % Plt Count 330 (150-450) k/uL MPV 7.2 Neutrophils % 71 % Lymphocytes % 21 % Monocytes % 4 % Eosinophils % 2 % Basophils % 1 % Neutrophils # 8.7 H (1.3-7.7) k/uL Lymphocytes # 2.6 (1.0-4.8) k/uL Monocytes # 0.5 (0-1.0) k/uL Eosinophils # 0.3 (0-0.7) k/uL Basophils # 0.1 (0-0.2) k/uL PT 10.5 (9.0-12.0) sec INR 1.0 (<1.2) APTT 26.2 (22.0-30.0) sec Sodium 137 (137-145) mmol/L Potassium 4.7 (3.5-5.1) mmol/L Chloride 102 (98-107) mmol/L Carbon Dioxide 26 (22-30) mmol/L Anion Gap 9 mmol/L BUN 18 H (7-17) mg/dL Creatinine 0.66 (0.52-1.04) mg/dL Est GFR (CKD-EPI)AfAm >90 (>60 ml/min/1.73 sqM) Est GFR (CKD-EPI)NonAf >90 (>60 ml/min/1.73 sqM) Glucose 183 H (74-99) mg/dL Calcium 9.7 (8.4-10.2) mg/dL Magnesium 2.0 (1.6-2.3) mg/dL Total Bilirubin 0.6 (0.2-1.3) mg/dL AST 44 H (14-36) U/L ALT 42 H (4-34) U/L Alkaline Phosphatase 82 (38-126) U/L Troponin I (0.000-0.034) ng/mL Total Protein 7.6 (6.3-8.2) g/dL Albumin 4.5 (3.5-5.0) g/dL TSH 2.620 (0.465-4.680) mIU/L 10/05/21 Range/Units 11:27 WBC (3.8-10.6) k/uL RBC (3.80-5.40) m/uL Hgb (11.4-16.0) gm/dL Hct (34.0-46.0) % MCV (80.0-100.0) fL MCH (25.0-35.0) pg MCHC (31.0-37.0) g/dL RDW (11.5-15.5) % Plt Count (150-450) k/uL MPV Neutrophils % % Lymphocytes % % Monocytes % % Eosinophils % % Basophils % % Neutrophils # (1.3-7.7) k/uL Lymphocytes # (1.0-4.8) k/uL Monocytes # (0-1.0) k/uL Eosinophils # (0-0.7) k/uL Basophils # (0-0.2) k/uL PT (9.0-12.0) sec INR (<1.2) APTT (22.0-30.0) sec Sodium (137-145) mmol/L Potassium (3.5-5.1) mmol/L Chloride (98-107) mmol/L Carbon Dioxide (22-30) mmol/L Anion Gap mmol/L BUN (7-17) mg/dL Creatinine (0.52-1.04) mg/dL Est GFR (CKD-EPI)AfAm (>60 ml/min/1.73 sqM) Est GFR (CKD-EPI)NonAf (>60 ml/min/1.73 sqM) Glucose (74-99) mg/dL Calcium (8.4-10.2) mg/dL Magnesium (1.6-2.3) mg/dL Total Bilirubin (0.2-1.3) mg/dL AST (14-36) U/L ALT (4-34) U/L Alkaline Phosphatase (38-126) U/L Troponin I <0.012 (0.000-0.034) ng/mL Total Protein (6.3-8.2) g/dL Albumin (3.5-5.0) g/dL TSH (0.465-4.680) mIU/L Disposition Clinical Impression: Chest pain, Bradycardia Disposition: [facility] Referrals: Alfredo De La Fuente DO [Primary Care Provider] - 1-2 days Time of Disposition: 13:15
[2021-10-05 11:35] LABS: Basophils # (A) 0.1 k/uL (0-0.2); Basophils % (A) 1 %; Eosinophils # (A) 0.3 k/uL (0-0.7); Eosinophils % (A) 2 %; HCT 46.5 % (34.0-46.0); HGB 14.8 gm/dL (11.4-16.0); Lymphocytes # (A) 2.6 k/uL (1.0-4.8); Lymphocytes % (A) 21 %; MCH 29.4 pg (25.0-35.0); MCHC 31.8 g/dL (31.0-37.0); MCV 92.5 fL (80.0-100.0); Mean Platelet Volume 7.2; Monocytes # (A) 0.5 k/uL (0-1.0); Monocytes % (A) 4 %; Neutrophils # (A) 8.7 k/uL (1.3-7.7); Neutrophils % (A) 71 %; Platelet Count 330 k/uL (150-450); RBC 5.02 m/uL (3.80-5.40); RDW 13.3 % (11.5-15.5); WBC 12.3 k/uL (3.8-10.6)
[2021-10-05 11:43] LABS: Partial Thromboplastin Time 26.2 sec (22.0-30.0); Prothrombin Time 10.5 sec (9.0-12.0)
[2021-10-05 11:49] LABS: ALT 42 U/L (4-34); AST 44 U/L (14-36); African American GFR (CKD) >90 (>60 ml/min/1.73 sqM); Albumin 4.5 g/dL (3.5-5.0); Alkaline Phosphatase 82 U/L (38-126); Anion Gap 9 mmol/L; Blood Urea Nitrogen 18 mg/dL (7-17); Calcium 9.7 mg/dL (8.4-10.2); Carbon Dioxide 26 mmol/L (22-30); Chloride 102 mmol/L (98-107); Glucose 183 mg/dL (74-99); Non-African American GFR(CKD) >90 (>60 ml/min/1.73 sqM); Potassium 4.7 mmol/L (3.5-5.1); Sodium 137 mmol/L (137-145); Total Bilirubin 0.6 mg/dL (0.2-1.3); Total Protein 7.6 g/dL (6.3-8.2)
--- NOTE | 2021-10-05 11:53 | XR ---
EXAMINATION TYPE: XR chest 1V portable DATE OF EXAM: 10/05/2021 Comparison: 09/27/2021 Clinical History: 66-year-old female dysrhythmia Findings: Low lung volumes and crowded vascular markings. Also, limitation due to the large patient body habitu s resulting in hazy densities. Heart borderline enlarged. The mild strandy atelectasis in the lower l ungs. No sharmaine consolidation or pleural effusion. Impression: Borderline cardiomegaly and hypoventilatory changes. Allowing for limitations from portable technique and large body habitus, no definite acute process.
[2021-10-05] MEDS ORDERED: NITROGLYCERIN SL TABS 0.4 MG TAB SUBLINGUAL PRN (13:32)
--- NOTE | 2021-10-05 14:12 | P.HPIM ---
History of Present Illness H&P Date: 10/05/21 History of Presenting Illness: Patient is a very pleasant 66-year-old female with a past medical history of hypertension, hyperlipidemia, melanoma, and recently diagnosed atrial f ibrillation on oral anticoagulation with Eliquis. She presented to the emergency department with a chief complaint of chest pressure and shortness of breath and concerns that her heart rate went down into the 40s and back up into the 110s and she was concerned that she was back into atrial fibrillation. Patient recently hospitalized 09/27/21 through 09/29/21 where she was diagnosed with new onset atrial fibrillation with RVR started on oral anticoagulant with Eliquis, antiarrhythmic flecainide and home atenolol dose was increased. Patient seen and fully evaluated at the bedside and continues to report mild pressure-like sensation to midsternal chest. She currently denies experiencing any headache, lightheadedness, dizziness, palpitations, shortness of breath, nausea, or experiencing any numbness/tingling/weakness in her extremities. She underwent full evaluation in the emergency department. EKG was completed confirming patient converted back into normal sinus rhythm at 63 bpm. Chest x- ray revealing borderline cardiomegaly and hypoventilatory changes, negative for acute cardiopulmonary process. CBC revealing mild leukocytosis with WBC count of 12.3 and CMP showing no significant abnormalities. TSH normal findings at 2.6-0. Initial troponin less than 0.012. Patient was admitted under our services with consultation to cardiology. Review of systems: Pertinent positives and negatives as discussed in HPI, a complete review of systems was performed and all other systems are negative. Physical exam: Vital signs reviewed and stable. General: Nontoxic, no distress and appears stated age. Derm: Skin warm and dry, normal coloration for ethnicity. Head: Atraumatic, normocephalic and symmetric. Eyes: EOMs intact, no lid lag, and anicteric sclera Mouth: no lip lesions, mucus membranes moist Cardiovascular: regular rate and rhythm with normal S1S2, no murmur, positive posterior tibial pulses bilaterally, and cap refill < 2 seconds. Lungs: Respirations even, regular, and unlabored on room air. Lungs CTA bilaterally, no rhonchi, no rales, no wheezing, and no accessory muscle usage. Abdominal: soft, nontender to palpation, no guarding, no appreciable organomega ly Ext: ROM intact. No gross muscle atrophy, no edema, no contractures Neuro: Speech clear, face symmetrical and CN II-XII grossly intact with no noted focal neuro deficits Psych: Alert and oriented to person, place, time, and situation. Appropriate and pleasant affect. Assessment and Plan of Care: Chest pressure, shortness of breath, and palpitations Paroxysmal Atrial fibrillation -EKG revealing normal sinus rhythm. -We will trend troponins -Patient to continue oral anticoagulant with Eliquis, antiarrhythmic flecainide and atenolol -Telemetry monitoring -Cardiology following, appreciate further recommendations. Hypertension -Monitor vital signs and continue daily medication regimen with atenolol and losartan. Hyperlipidemia -Continue daily medication regimen with atorvastatin 10 mg daily -Lipid profile unremarkable The patient is admitted with an anticipated less than 2 midnight stay for evaluation of chest pressure CODE STATUS: Full code DVT prophylaxis: Eliquis Discussed with: Patient and RN Anticipated discharge date: 1-[address]: Home A total of 40 minutes was spent on the care of this complex patient more than 50% of the time was spent in counseling and care coordination. Arvin Donahue NP rendered care for this patient independently, reviewed the findings and plan as documented in the note above. I did not physically speak with or examine the patient on this date. Past Medical History Past Medical History: Atrial Fibrillation, Cancer, Chest Pain / Angina, Hyperte nsion Additional Past Medical History / Comment(s): PVC's, melanoma skin History of Any Multi-Drug Resistant Organisms: None Reported Past Surgical History: Appendectomy, Hysterectomy, Orthopedic Surgery Additional Past Surgical History / Comment(s): Melanoma removed R lower leg, bilateral total knee arthroplasties, L ear surgery d/t injury as a child, bladder suspension, colonoscopy/polypectomy. Past Anesthesia/Blood Transfusion Reactions: No Reported Reaction Past Psychological History: No Psychological Hx Reported Smoking Status: Never smoker Past Alcohol Use History: None Reported Past Drug Use History: None Reported - Past Family History Father Family Medical History: Coronary Artery Disease (CAD) Additional Family Medical History / Comment(s): CABG Mother Family Medical History: Coronary Artery Disease (CAD) Additional Family Medical History / Comment(s): CABG Medications and Allergies Home Medications Medication Instructions Recorded Confirmed Type Cyanocobalamin (Vitamin B-12) 1,000 mcg PO DAILY 09/27/21 10/05/21 History [Vitamin B-12] Losartan [Cozaar] 25 mg PO DAILY 09/27/21 10/05/21 History Multivitamins, Thera [Multivitamin 1 tab PO DAILY 09/27/21 10/05/21 History (formulary)] Rosuvastatin Calcium 5 mg PO DAILY 09/27/21 10/05/21 History Apixaban [Eliquis] 5 mg PO BID 30 Days #60 tab 09/28/21 10/05/21 Rx Flecainide [Tambocor] 100 mg PO Q12HR 30 Days #120 tab 09/29/21 10/05/21 Rx atenoloL [Tenormin] 50 mg PO DAILY 30 Days #30 tab 09/29/21 10/05/21 Rx Allergies Allergy/AdvReac Type Severity Reaction Status Date / Time ciprofloxacin [From Cipro] Allergy Unknown Verified 10/05/21 13:08 Iodinated Contrast Media Allergy Rash/Hives Verified 10/05/21 13:08 iodine Allergy Rash/Hives Verified 10/05/21 13:08 morphine Allergy Rash/Hives Verified 10/05/21 13:08 phenazopyridine Allergy Unknown Verified 10/05/21 13:08 [From Pyridium] tetanus and diphtheria Allergy Rash/Hives Verified 10/05/21 13:08 toxoids Influenza Virus Vaccines AdvReac Unknown Verified 10/05/21 13:08 Physical Exam Osteopathic Statement: *. No significant issues noted on an osteopathic structural exam other than those noted in the History and Physical/Consult. Vitals: Vital Signs Temp Pulse Pulse Resp BP Pulse Ox 10/05/21 12:27 61 18 128/74 96 10/05/21 11:07 64 18 146/81 98 10/05/21 11:00 63 10/05/21 10:48 98.5 F 50 L 20 221/148 97 Intake and Output 10/04/21 10/05/21 10/05/21 22:59 06:59 14:59 Other: Weight 117.027 kg Results CBC & Chem 7: 10/05/21 11:27 10/05/21 11:27 Labs: Abnormal Lab Results - Last 24 Hours (Table) 10/05/21 10/05/21 Range/Units 11:27 11:27 WBC 12.3 H (3.8-10.6) k/uL Hct 46.5 H (34.0-46.0) % Neutrophils # 8.7 H (1.3-7.7) k/uL BUN 18 H (7-17) mg/dL Glucose 183 H (74-99) mg/dL AST 44 H (14-36) U/L ALT 42 H (4-34) U/L
[2021-10-05] MEDS: NITROGLYCERIN OINT 1 INCH/GM PACKET TOPICAL SCH (18:34)
[2021-10-06] MEDS: NITROGLYCERIN OINT 1 INCH/GM PACKET TOPICAL SCH ×2 (00:30→06:16)
[2021-10-06 05:22] VITALS: RESP 18
[2021-10-06] MEDS ORDERED: FLECAINIDE 50 MG TAB PO SCH (09:00)
[2021-10-06] MEDS ORDERED: atenoloL 50 MG TAB PO SCH (09:00)
[2021-10-06] MEDS ORDERED: APIXABAN 5 MG TAB PO SCH (09:00)
[2021-10-06] MEDS ORDERED: ATORVASTATIN 10 MG TAB PO SCH (09:00)
[2021-10-06] MEDS ORDERED: ASPIRIN 325 MG TAB PO SCH (09:00)
[2021-10-06 09:06] VITALS: BP 114/71; PULSE 69; TEMP 97.8
[2021-10-06 09:38] LABS: Chol/HDL Ratio 2.94 Ratio; LDL Cholesterol,Calculated 38.7 mg/dL (0.0-131.0)
--- NOTE | 2021-10-06 10:55 | P.CRDCN ---
History of Present Illness History of present illness: This is a [id number] female past medical history significant for Recent diagnosis of paroxysmal atrial fibrillation on 09/28/21, hypertension, hyperlipidemia, PVCs, and melanoma. She is to follow up with Dr. Dixon. We have been asked to see in consultation for bradycardia and chest pain. Patient presents emergency department with complaints chest pressure and palpitations. She states yesterday she was working from home, sitting at her desk typing and had onset of palpitations, chest pressure. She states she looked at her apple watch and saw her heart rate fluctuating from 40s-110. She states she was not feeling well. She called the cardiology office and patient recom mended go to the ER for further evaluation. EKG on admission, revealed sinus mechanism. Her chest pressure was located in the center of her chest/midsternal. Non- radiating. Non-exertional. She did have some relief with nitroglycerin. She denies any associated nausea, diaphoresis, lightheadedness or dizziness. She recently saw Dr. Dixon in the office on 10/04/21, she was doing well and tolerating her medications well. She was scheduled for an outpatient Lexiscan stress test on 10/22/21. At home she was taking cardizem 240mg daily, atenolol 50mg daily, flecainide 100mg BID, losartan 25mg daily, and Eliquis 5mg BID. She was recently discharged last week for new onset atrial fibrillation with RVR. She was started on IV Cardizem, converted to sinus mechanism and was discharged with atenolol 50mg daily, Flecainide 100mg BID and Eliquis 5mg BID. Recommended at that time that cardizem be discontinued. However, patient states there was a Cardizem prescription for her at the pharmacy and she was taking that medication as well. Former smoker quit in her 20s. She denies any alcohol use or illicit drug use. She states her does tell her she snores, she states she doesnt sleep well but attributes it to insomnia not a breathing issue. She denies any history of CAD, IL, stroke, diabetes. States she is a pre- diabetic prior. Family history includes mother had an IL with CABG in her 60s, father with his first IL at 55 and has had stenting and CABG. Sister recently had a CABG she is in her late 60s. DIAGNOSTICS EKG reveals Echo revealed EF 55-60%, no significant wall motion abnormalities Telemetry tracings indicate sinus mechanism HR 70s-80s Chest xray no acute cardiopulmonary process Laboratory reviewed, Current home medications include REVIEW OF SYSTEMS At the time of my exam: CONSTITUTIONAL: Denies fever or chills. CARDIOVASCULAR: Denies chest pain, shortness of breath, orthopnea, PND or palpitations. RESPIRATORY: Denies cough. GASTROINTESTINAL: Denies abdominal pain, diarrhea, constipation, nausea or vomiting. MUSCULOSKELETAL: Denies myalgias. NEUROLOGIC: Denies numbness, tingling, headacbe or weakness. ENDOCRINE: Denies fatigue, weight change, polydipsia or polyurina. GENITOURINARY: Denies burning, hematuria or urgency with micturation. HEMATOLOGIC: Denies history of anemia or bleeding. PHYSICAL EXAMINATION Vitals Reviewed CONSTITUTIONAL: No apparent distress. HEENT: Head is normocephalic. Pupils are equal, round. Sclerae anicteric. Mucous membranes of the mouth are moist. No JVD. No carotid bruit. CHEST EXAMINATION: Lungs are clear to auscultation. No chest wall tenderness is noted on palpation or with deep breathing. HEART EXAMINATION: Regular rate and rhythm. S1, S2 heard. No murmurs, gallops or rub. ABDOMEN: Soft, nontender. Positive bowel sounds. EXTREMITIES: 2+ peripheral pulses, no lower extremity edema and no calf tend erness. SKIN: warm, dry NEUROLOGIC EXAMINATION: Patient is awake, alert and oriented x3. ASSESSMENT Chest pain, atypical, acute coronary syndrome has been ruled out Paroxysmal atrial fibrillation with rapid ventricular response -[id number] score 3, on Eliquis, currently in sinus mechanism History of hypertension Dyslipidemia History of frequent PVCs PLAN Discontinue cardizem Continue atenolol, Eliquis, flecainide Continue home statin and losartan Follow up outpatient for planned stress test on 10/22/2021 Follow up outpatient with Dr. Dixon in the office from cardiology perspective, patient stable to be discharged home. Nurse practitioner note has been reviewed by physician. Signing provider agrees with the documented findings, assessment, and plan of care. Past Medical History Past Medical History: Atrial Fibrillation, Cancer, Chest Pain / Angina, Hypertension Additional Past Medical History / Comment(s): PVC's, melanoma skin History of Any Multi-Drug Resistant Organisms: None Reported Past Surgical History: Appendectomy, Hysterectomy, Orthopedic Surgery Additional Past Surgical History / Comment(s): Melanoma removed R lower leg, bilateral total knee arthroplasties, L ear surgery d/t injury as a child, bladder suspension, colonoscopy/polypectomy. Past Anesthesia/Blood Transfusion Reactions: No Reported Reaction Past Psychological History: No Psychological Hx Reported Smoking Status: Never smoker Past Alcohol Use History: None Reported Past Drug Use History: None Reported - Past Family History Father Family Medical History: Coronary Artery Disease (CAD) Additional Family Medical History / Comment(s): CABG Mother Family Medical History: Coronary Artery Disease (CAD) Additional Family Medical History / Comment(s): CABG Medications and Allergies Home Medications Medication Instructions Recorded Confirmed Type Cyanocobalamin (Vitamin B-12) 1,000 mcg PO DAILY 09/27/21 10/05/21 History [Vitamin B-12] Losartan [Cozaar] 25 mg PO DAILY 09/27/21 10/05/21 History Multivitamins, Thera [Multivitamin 1 tab PO DAILY 09/27/21 10/05/21 History (formulary)] Rosuvastatin Calcium 5 mg PO DAILY 09/27/21 10/05/21 History Apixaban [Eliquis] 5 mg PO BID 30 Days #60 tab 09/28/21 10/05/21 Rx Flecainide [Tambocor] 100 mg PO Q12HR 30 Days #120 tab 09/29/21 10/05/21 Rx atenoloL [Tenormin] 50 mg PO DAILY 30 Days #30 tab 09/29/21 10/05/21 Rx Allergies Allergy/AdvReac Type Severity Reaction Status Date / Time ciprofloxacin [From Cipro] Allergy Unknown Verified 10/05/21 13:08 Iodinated Contrast Media Allergy Rash/Hives Verified 10/05/21 13:08 iodine Allergy Rash/Hives Verified 10/05/21 13:08 morphine Allergy Rash/Hives Verified 10/05/21 13:08 phenazopyridine Allergy Unknown Verified 10/05/21 13:08 [From Pyridium] tetanus and diphtheria Allergy Rash/Hives Verified 10/05/21 13:08 toxoids Influenza Virus Vaccines AdvReac Unknown Verified 10/05/21 13:08 Physical Exam Vitals: Vital Signs Temp Pulse Pulse Resp BP Pulse Ox 10/05/21 12:27 61 18 128/74 96 10/05/21 11:07 64 18 146/81 98 10/05/21 11:00 63 10/05/21 10:48 98.5 F 50 L 20 221/148 97 Intake and Output 10/04/21 10/05/21 10/05/21 22:59 06:59 14:59 Other: Weight 117.027 kg Results 10/05/21 11:27 10/05/21 11:27 Cardiac Enzymes 10/05/21 10/05/21 Range/Units 11:27 11:27 AST 44 H (14-36) U/L Troponin I <0.012 (0.000-0.034) ng/mL Coagulation 10/05/21 Range/Units 11:27 PT 10.5 (9.0-12.0) sec APTT 26.2 (22.0-30.0) sec CBC 10/05/21 Range/Units 11:27 WBC 12.3 H (3.8-10.6) k/uL RBC 5.02 (3.80-5.40) m/uL Hgb 14.8 (11.4-16.0) gm/dL Hct 46.5 H (34.0-46.0) % Plt Count 330 (150-450) k/uL Comprehensive Metabolic Panel 10/05/21 Range/Units 11:27 Sodium 137 (137-145) mmol/L Potassium 4.7 (3.5-5.1) mmol/L Chloride 102 (98-107) mmol/L Carbon Dioxide 26 (22-30) mmol/L BUN 18 H (7-17) mg/dL Creatinine 0.66 (0.52-1.04) mg/dL Glucose 183 H (74-99) mg/dL Calcium 9.7 (8.4-10.2) mg/dL AST 44 H (14-36) U/L ALT 42 H (4-34) U/L Alkaline Phosphatase 82 (38-126) U/L Total Protein 7.6 (6.3-8.2) g/dL Albumin 4.5 (3.5-5.0) g/dL Current Medications Generic Name Dose Route Start Last Admin Trade Name Freq PRN Reason Stop Dose Admin Aspirin 325 mg 10/06/21 09:00 Aspirin 325 Mg Tab PO DAILY GIDEON Nitroglycerin 0.4 mg 10/05/21 13:32 Nitroglycerin Sl Tabs 0.4 Mg Tab SUBLINGUAL Q5M PRN Chest Pain Nitroglycerin 1 inch 10/05/21 18:00 Nitroglycerin Oint 1 Inch/Gm Packet TOPICAL Q6HR GIDEON Intake and Output 10/04/21 10/05/21 10/05/21 22:59 06:59 14:59 Other: Weight 117.027 kg Patient Weight 10/06/21 06:59 Weight 117.027 kg 10/05/21 11:27 10/05/21 11:27
--- NOTE | 2021-10-06 12:32 | P.DS ---
Providers Date of admission: 10/05/21 13:32 Expected date of discharge: 10/06/21 Attending physician: Ysabel Hubbard DO Consults: 10/05/21 13:32 Consult Physician Urgent Consulting Provider: [facility] Consult Reason/Comments: Chest pain, bradycardia Do you want consulting provider notified?: Yes Primary care physician: [facility] Course: Discharge Diagnosis: Chest pressure, shortness of breath, and palpitations Paroxysmal Atrial fibrillation, currently maintaining sinus mechanism, patient to continue oral anticoagulant with Eliquis, antiarrhythmic flecainide and atenolol Hypertension, Monitor vital signs and continue daily medication regimen with atenolol and losartan. Hyperlipidemia, Continue daily medication regimen with rosuvastatin 5 mg daily Hospital Course: Patient is a very pleasant 66-year-old female with a past medical history of hypertension, hyperlipidemia, melanoma, and recently diagnosed atrial fibrillation on oral anticoagulation with Eliquis. She presented to the emergency department with a chief complaint of chest pressure and shortness of breath and concerns that her heart rate went down into the 40s and back up into the 110s and she was concerned that she was back into atrial fibrillation. Patient recently hospitalized 09/27/21 through 09/29/21 where she was diagnosed with new onset atrial fibrillation with RVR started on oral anticoagulant with Eliquis, antiarrhythmic flecainide and home atenolol dose was increased. P atient seen and fully evaluated at the bedside and continues to report mild pressure-like sensation to midsternal chest. She currently denies experiencing any headache, lightheadedness, dizziness, palpitations, shortness of breath, nausea, or experiencing any numbness/tingling/weakness in her extremities. She underwent full evaluation in the emergency department. EKG was completed confirming patient converted back into normal sinus rhythm at 63 bpm. Chest x- ray revealing borderline cardiomegaly and hypoventilatory changes, negative for acute cardiopulmonary process. CBC revealing mild leukocytosis with WBC count of 12.3 and CMP showing no significant abnormalities. TSH normal findings at 2.6-0. Initial troponin less than 0.012. Patient was admitted under our services with consultation to cardiology. She was monitored overnight. Patient remained in normal sinus rhythm maintaining heart rate in 60s throughout. She reports full resolution of previously reported chest discomfort/pressure. Troponins were trended throughout the night all negative at less than 0.012. Upon further discussion, patient reports that in addition to previously prescribed Eliquis, flecainide, and atenolol she has also been taking Cardizem previously prescribed and discontinued. Patient instructed Cardizem to be discontinued and patient to resume daily home medication regimen only consisting of Eliquis, rosuvastatin, atenolol, losartan, flecainide, multivitamin and vitamin B12. Cardiology evaluated and has cleared patient for outpatient follow-up in their office in 10 days. Pt and her verbalized understanding of discontinuation of cardizem. No other medication changes made at this time. Pt medically stable for discharge. Physical exam: Vital signs reviewed and stable. General: Nontoxic, no distress and appears stated age. Derm: Skin warm and dry, normal coloration for ethnicity. Head: Atraumatic, normocephalic and symmetric. Eyes: EOMs intact, no lid lag, and anicteric sclera Mouth: no lip lesions, mucus membranes moist Cardiovascular: regular rate and rhythm with normal S1S2, no murmur, positive posterior tibial pulses bilaterally, and cap refill < 2 seconds. Lungs: Respirations even, regular, and unlabored on room air. Lungs CTA bilaterally, no rhonchi, no rales, no wheezing, and no accessory muscle usage. Abdominal: soft, nontender to palpation, no guarding, no appreciable organomegaly Ext: ROM intact. No gross muscle atrophy, no edema, no contractures Neuro: Speech clear, face symmetrical and CN II-XII grossly intact with no noted focal neuro deficits Psych: Alert and oriented to person, place, time, and situation. Appropriate and pleasant affect. A total of 35 minutes of time were spent preparing this complex discharge summary. Arvin Donahue NP rendered care for this patient independently, reviewed the findings and plan as documented in the note above. I did not physically speak with or examine the patient on this date. Patient Condition at Discharge: Stable Plan - Discharge Summary Discharge Rx Participant: No New Discharge Prescriptions: Continue Multivitamins, Thera [Multivitamin (formulary)] 1 tab PO DAILY Losartan [Cozaar] 25 mg PO DAILY Flecainide [Tambocor] 100 mg PO Q12HR 30 Days #120 tab atenoloL [Tenormin] 50 mg PO DAILY 30 Days #30 tab Rosuvastatin Calcium 5 mg PO DAILY Cyanocobalamin (Vitamin B-12) [Vitamin B-12] 1,000 mcg PO DAILY Apixaban [Eliquis] 5 mg PO BID 30 Days #60 tab Discontinued Diltiazem Cd [Cardizem CD] 240 mg PO DAILY Discharge Medication List Cyanocobalamin (Vitamin B-12) [Vitamin B-12] 1,000 mcg PO DAILY 09/27/21 [History] Losartan [Cozaar] 25 mg PO DAILY 09/27/21 [History] Multivitamins, Thera [Multivitamin (formulary)] 1 tab PO DAILY 09/27/21 [Histor y] Rosuvastatin Calcium 5 mg PO DAILY 09/27/21 [History] Apixaban [Eliquis] 5 mg PO BID 30 Days #60 tab 09/28/21 [Rx] Flecainide [Tambocor] 100 mg PO Q12HR 30 Days #120 tab 09/29/21 [Rx] atenoloL [Tenormin] 50 mg PO DAILY 30 Days #30 tab 09/29/21 [Rx] Follow up Appointment(s)/Referral(s): Alfredo De La Fuente DO [Primary Care Provider] - 1-2 days Светлана Dixon MD [STAFF PHYSICIAN] - 10 Days Activity/Diet/Wound Care/Special Instructions: Activity: As tolerated. Take breaks as needed. Diet: Heart healthy and carb consistent diet. Avoid salts, or foods with hidden salts such as canned or boxed foods and frozen dinners. Extra salt makes your heart work harder and traps the fluid in your body for longer. Special Instructions: Take all of your medications as directed and remember to keep all of your doctor's appointments and follow-up as needed. Please be sure to review discharge instructions and home medication list with your home medications to ensure there have been no changes. Do not continue taking Cardizem, this medication is discontinued. Please resume daily medication regimen of Eliquis, rosuvastatin, atenolol, losartan, flecainide, multivitamin and vitamin B12. Thank you for allowing us to participate in your care, it was truly a pleasure having you for our patient!!! Discharge Disposition: HOME SELF-CARE
== END 2021-10-06 12:27 | disposition home or self-care (01) ==
LOC: EC 10:44 → INTOOBSV 13:32 → 3SCARD 13:32 → UNDODISOB 10-06 12:27
PROVIDERS: ADMIT Internal Medicine; ATTEND Internal Medicine
DX: R07.2 Precordial pain (principal); R00.2 Palpitations; I48.0 Paroxysmal atrial fibrillation; E78.5 Hyperlipidemia, unspecified; R00.1 Bradycardia, unspecified; D72.829 Elevated white blood cell count, unspecified; I10 Essential (primary) hypertension; G47.00 Insomnia, unspecified; R06.83 Snoring; Z79.899 Other long term (current) drug therapy; Z79.01 Long term (current) use of anticoagulants; Z91.048 Other nonmedicinal substance allergy status; Z88.1 Allergy status to other antibiotic agents; Z88.7 Allergy status to serum and vaccine; Z88.5 Allergy status to narcotic agent; Z90.49 Acquired absence of other specified parts of digestive tract; Z85.820 Personal history of malignant melanoma of skin; Z90.710 Acquired absence of both cervix and uterus; Z86.010 Personal history of colon polyps; Z71.3 Dietary counseling and surveillance; Z96.653 Presence of artificial knee joint, bilateral; Z87.891 Personal history of nicotine dependence; Z82.49 Family history of ischemic heart disease and other diseases of the circulatory system; Z88.8 Allergy status to other drugs, medicaments and biological substances
CPT/HCPCS: 99285; 36415; 93005 ×2; 80061; 80053; 83735; 84443; 84484; 85025; 85610; 85730; 71045; G0378

== ENCOUNTER 2022-12-21 21:31 | Emergency (ER) | payer MEDICARE ==
[2022-12-21 22:18] VITALS: TEMP 98.2
--- NOTE | 2022-12-21 22:28 | ED ---
Upper Extremity HPI - General Chief Complaint: Extremity Injury, Upper Stated Complaint: rt shoulder injury Time Seen by Provider: 12/21/22 22:27 Source: patient, RN notes reviewed, old records reviewed Mode of arrival: wheelchair Limitations: no limitations - History of Present Illness Initial Comments: This is a 67-year-old female to the ER today. She presents today for evaluation of fall. This is a fall from standing at her home, patient's complaining of severe arm pain right arm pain right shoulder pain as well as right knee pain. Patient's follows mechanical she did trip landing into a water feature in her front yard. Did not hit her head no loss of consciousness. MD Complaint: Injury to:: right, shoulder -: hour(s) Other Extremity Injury: Shoulder: Right Other Injuries: none Handedness: right Place: home Severity scale (1-10): 10 Improves With: immobilization Worsens With: movement of extremity Context: fall, direct blow Associated Symptoms: denies other symptoms Treatments Prior to Arrival: other (0) - Related Data Home Medications Medication Instructions Recorded Confirmed Cyanocobalamin (Vitamin B-12) 1,000 mcg PO DAILY 09/27/21 10/05/21 [Vitamin B-12] Losartan [Cozaar] 25 mg PO DAILY 09/27/21 10/05/21 Multivitamins, Thera [Multivitamin 1 tab PO DAILY 09/27/21 10/05/21 (formulary)] Rosuvastatin Calcium 5 mg PO DAILY 09/27/21 10/05/21 Previous Rx's Medication Instructions Recorded Apixaban [Eliquis] 5 mg PO BID 30 Days #60 tab 09/28/21 Flecainide [Tambocor] 100 mg PO Q12HR 30 Days #120 tab 09/29/21 atenoloL [Tenormin] 50 mg PO DAILY 30 Days #30 tab 09/29/21 HYDROcodone/APAP 5-325MG [[place] 1 tab PO Q6HR PRN #12 tab 12/22/22 5-325] Allergies Allergy/AdvReac Type Severity Reaction Status Date / Time ciprofloxacin [From Cipro] Allergy Unknown Verified 12/21/22 22:16 hydromorphone [From Dilaudid] Allergy Swelling Verified 12/23/22 14:12 Iodinated Contrast Media Allergy Rash/Hives Verified 12/21/22 22:16 iodine Allergy Rash/Hives Verified 12/21/22 22:16 morphine Allergy Rash/Hives Verified 12/21/22 22:16 phenazopyridine Allergy Unknown Verified 12/21/22 22:16 [From Pyridium] tetanus and diphtheria Allergy Rash/Hives Verified 12/21/22 22:16 toxoids Influenza Virus Vaccines AdvReac Unknown Verified 12/21/22 22:16 Review of Systems ROS Statement: Those systems with pertinent positive or pertinent negative responses have been documented in the HPI. ROS Other: All systems not noted in ROS Statement are negative. Past Medical History Past Medical History: Atrial Fibrillation, Cancer, Chest Pain / Angina, Hypertension Additional Past Medical History / Comment(s): PVC's, melanoma skin History of Any Multi-Drug Resistant Organisms: None Reported Past Surgical History: Appendectomy, Hysterectomy, Orthopedic Surgery Additional Past Surgical History / Comment(s): Melanoma removed R lower leg, bilateral total knee arthroplasties, L ear surgery d/t injury as a child, bladder suspension, colonoscopy/polypectomy. Past Anesthesia/Blood Transfusion Reactions: No Reported Reaction Past Psychological History: No Psychological Hx Reported Smoking Status: Never smoker Past Alcohol Use History: None Reported Past Drug Use History: None Reported - Past Family History Father Family Medical History: Coronary Artery Disease (CAD) Additional Family Medical History / Comment(s): CABG Mother Family Medical History: Coronary Artery Disease (CAD) Additional Family Medical History / Comment(s): CABG General Exam Limitations: no limitations General appearance: alert, in no apparent distress Head exam: Present: atraumatic, normocephalic, normal inspection Eye exam: Present: normal appearance, PERRL, EOMI. Absent: scleral icterus, conjunctival injection, periorbital swelling ENT exam: Present: normal exam, mucous membranes moist Neck exam: Present: normal inspection. Absent: tenderness, meningismus, lymphadenopathy Respiratory exam: Present: normal lung sounds bilaterally. Absent: respiratory distress, wheezes, rales, rhonchi, stridor Cardiovascular Exam: Present: regular rate, normal rhythm, normal heart sounds. Absent: systolic murmur, diastolic murmur, rubs, gallop, clicks GI/Abdominal exam: Present: soft, normal bowel sounds. Absent: distended, tenderness, guarding, rebound, rigid Extremities exam: Present: normal capillary refill. Absent: full ROM (Patient cannot move right shoulder), tenderness, pedal edema, joint swelling, calf tenderness Back exam: Present: normal inspection Neurological exam: Present: alert, oriented X3, CN II-XII intact Psychiatric exam: Present: normal affect, normal mood Skin exam: Present: warm, dry, intact, normal color. Absent: rash Course Vital Signs 12/21/22 12/21/22 12/22/22 22:16 23:20 00:45 Temperature 98.2 F Pulse Rate 120 H 78 Respiratory 16 20 16 Rate Blood Pressure 110/64 139/81 155/68 O2 Sat by Pulse 98 95 Oximetry 12/22/22 02:17 Temperature Pulse Rate Respiratory 20 Rate Blood Pressure 159/75 O2 Sat by Pulse Oximetry - Reevaluation(s) Reevaluation #1: 12/22/22 01:29 Medical records reviewed Reevaluation #2: 12/22/22 01:29 Patient still with pain despite shoulder relocation, sling Reevaluation #3: 12/22/22 01:29 Patient for results questions answered Reevaluation #4: 12/21/22 23:23 Was pt. sent in by a medical professional or institution? @ -no Did you speak to anyone other than the patient for history? @ -no Did you review nursing and triage notes? @ -agree Were old charts reviewed? @ -yes Differential Diagnosis? @ -prior EKG interpreted by me (3pts min.)? @ -no X-rays interpreted by me (1pt min.)? @ -yes CT interpreted by me (1pt min.)? @ -no U/S interpreted by me (1pt. min.)? @ -no What testing was considered but not performed? (CT, X-rays, U/S, labs)? Why? @ -no What meds were considered but not given? Why? @ -no Did you discuss the management of the patient with other professionals? @ -no Did you reconcile home meds? @ -no Was smoking cessation discussed for >3mins.? @ -no Was critical care preformed (if so, how long)? @ -no Were there social determinants of health that impacted care today? How? (Homelessness, low income, unemployed, alcoholism, drug addiction, transportation, low edu. Level, literacy, decrease access to med. care, skilled nursing, rehab)? @ -no Was there de-escalation of care discussed even if they declined? (Discuss DNR or withdrawal of care, Hospice)? @ -no What co-morbidities impacted this encounter? (DM, HTN, Smoking, COPD, CAD, Cancer, CVA, Hep., AIDS, mental health diagnosis, sleep apnea, morbid obesity)? @ -none Was patient admitted / discharged? @ -67 female to the emergency department for evaluation of a trip and fall resulting in right shoulder dislocation, relocated here in the ER under conscious sedation in moderate sedation. Patient has pain control and can be discharged home Discharge Undiagnosed new problem with uncertain prognosis? @ -no Drug Therapy requiring intensive monitoring for toxicity (Heparin, Nitro, Insulin, Cardizem)? @ -no Were any procedures done? @ -no Diagnosis/symptom? @ -Right shoulder dislocation Acute, or Chronic, or Acute on Chronic? @ -acute Uncomplicated (without systemic symptoms) or Complicated (systemic symptoms)? @ -complicated Side effects of treatment? @ -no Exacerbation, Progression, or Severe Exacerbation] @ -no Poses a threat to life or bodily function? @ -no Procedures - Orthopedic Joint Reduction Joint #1 Consent Obtained: verbal consent, written consent Joint Reduction Location: shoulder Analgesia: procedural sedation Shoulder Technique Used (if applicable): traction/counter-traction, scapula manipulation, external rotation, Dorian Mims Cunningham Post-Reduction Neuro Exam: intact Post-Reduction Vascular Exam: intact Post Reduction X-Ray Obtained: Yes Post Reduction X-Ray Results: reduced Splint Applied: Yes Patient Tolerated Procedure: well Medical Decision Making - Medical Decision Making 67 female to the emergency department for evaluation of a trip and fall resulting in right shoulder dislocation, relocated here in the ER under conscious sedation in moderate sedation. Patient has pain control and can be discharged home - Radiology Data Radiology results: report reviewed (X-ray right shoulder does show dislocation, repeat x-ray shows interval relocation, x-ray knee is negative for traumatic injury), image reviewed Disposition Clinical Impression: Dislocation of shoulder region, Dislocation of left shoulder joint Disposition: HOME SELF-CARE Condition: Good Instructions (If sedation given, give patient instructions): Shoulder Dis location (ED), Moderate Sedation (ED) Prescriptions: HYDROcodone/APAP 5-325MG [[place] 5-325] 1 tab PO Q6HR PRN #12 tab PRN Reason: Pain Is patient prescribed a controlled substance at d/c from ED?: No Referrals: Alfredo De La Fuente DO [Primary Care Provider] - 1-2 days Time of Disposition: 00:20
[2022-12-21] MEDS ORDERED: SODIUM CHLORIDE 0.9% 500 ML 500 ML IV STA (22:38)
[2022-12-21] MEDS ORDERED: HYDROmorphone 1 MG/ML 1 ML SYRINGE IVP STA (22:38)
[2022-12-21] MEDS ORDERED: ONDANSETRON 4 MG/2 ML VIAL IVP STA (22:38)
--- NOTE | 2022-12-21 23:18 | XR ---
EXAMINATION TYPE: XR shoulder complete RT DATE OF EXAM: 12/21/2022 CLINICAL HISTORY: pain TECHNIQUE: Three views of the right shoulder are obtained. COMPARISON: None FINDINGS: Anterior dislocation of the humerus relative to the glenoid. Discrete fracture identified a t this time. IMPRESSION: 1. Anterior shoulder dislocation.
[2022-12-21] MEDS ORDERED: PROPOFOL 10 MG/ML 20 ML VIAL IV ONE (23:20)
--- NOTE | 2022-12-22 00:04 | XR ---
EXAMINATION TYPE: XR shoulder limited RT DATE OF EXAM: 12/21/2022 CLINICAL HISTORY: pain TECHNIQUE: Single view of the right shoulder was obtained post reduction COMPARISON: Earlier in the day FINDINGS: There is relocation of the humerus relative to the glenoid. There is irregularity of the gr eater tuberosity felt to reflect Hill-Sachs fracture. There is also irregularity of the lesser tubero sity. Additional fracture is not excluded. AC joint is intact. IMPRESSION: 1. Relocation of the humerus relative to the glenoid. 2. Humeral head fractures are not excluded.
[2022-12-22 00:46] VITALS: PULSE 78
[2022-12-22] MEDS ORDERED: IBUPROFEN 800 MG TAB PO STA (00:48)
[2022-12-22] MEDS ORDERED: NAPROXEN 250 MG TAB PO STA (00:48)
[2022-12-22] MEDS ORDERED: ACETAMINOPHEN TAB 500 MG TAB PO STA (00:49)
[2022-12-22] MEDS ORDERED: MORPHINE SULFATE 4 MG/ML SYRINGE IVP STA (01:29)
[2022-12-22] MEDS ORDERED: HYDROcodone/APAP 5-325MG 1 EACH TAB PO STA (01:50)
[2022-12-22 02:21] VITALS: BP 159/75; RESP 20
--- NOTE | 2022-12-22 03:23 | XR ---
EXAM: XR Right Knee, 3 Views CLINICAL HISTORY: ITS.REASON XR Reason: fall TECHNIQUE: Three views of the right knee. COMPARISON: No relevant prior studies available. FINDINGS: Bones/joints: No acute fracture. No dislocation. Arthroplasty changes. Soft tissues: Infrapatellar swelling. IMPRESSION: No acute osseous abnormalities.
== END 2022-12-22 02:39 | disposition home or self-care (01) ==
LOC: EC 21:31
DX: S43.001A Unspecified subluxation of right shoulder joint, initial encounter (principal); I10 Essential (primary) hypertension; I48.91 Unspecified atrial fibrillation; Z79.899 Other long term (current) drug therapy; Z88.1 Allergy status to other antibiotic agents; Z88.5 Allergy status to narcotic agent; Z88.7 Allergy status to serum and vaccine; Z88.8 Allergy status to other drugs, medicaments and biological substances; W18.30XA Fall on same level, unspecified, initial encounter; Y92.009 Unspecified place in unspecified non-institutional (private) residence as the place of occurrence of the external cause
CPT/HCPCS: 99283; 96374; 96361 ×3; 23650; 99152; 73020; 73030; 73562; J2405

== ENCOUNTER 2022-12-23 13:58 | Emergency (ER) | payer MEDICARE ==
[2022-12-23 14:17] VITALS: PULSE 65
[2022-12-23] MEDS ORDERED: traMADol 50 MG STARTER PACK 3 TAB BTL PO STA (15:02)
[2022-12-23] MEDS ORDERED: traMADol 50 MG TAB PO STA (15:03)
--- NOTE | 2022-12-23 15:06 | ED ---
General Adult HPI - General Chief complaint: Extremity Injury, Lower Stated complaint: R knee swelling Time Seen by Provider: 12/23/22 14:43 Source: patient Mode of arrival: ambulatory Limitations: no limitations - History of Present Illness Initial comments: Patient is 67-year-old female presents to the emergency department for swelling and bruising beneath her right knee. Patient fell on Monday she dislocated her right shoulder. Patient also got an x-ray of the knee which was negative. States her pain has improved however she noticed increased swelling and bruising to her knee over the past couple days. She is on Eliquis atrial fibrillation. She denies calf pain and swelling. Denies history of DVT and PE. It is in right shoulder sling states she is in a lot of pain. - Related Data Home Medications Medication Instructions Recorded Confirmed Cyanocobalamin (Vitamin B-12) 1,000 mcg PO DAILY 09/27/21 10/05/21 [Vitamin B-12] Losartan [Cozaar] 25 mg PO DAILY 09/27/21 10/05/21 Multivitamins, Thera [Multivitamin 1 tab PO DAILY 09/27/21 10/05/21 (formulary)] Rosuvastatin Calcium 5 mg PO DAILY 09/27/21 10/05/21 Previous Rx's Medication Instructions Recorded Apixaban [Eliquis] 5 mg PO BID 30 Days #60 tab 09/28/21 Flecainide [Tambocor] 100 mg PO Q12HR 30 Days #120 tab 09/29/21 atenoloL [Tenormin] 50 mg PO DAILY 30 Days #30 tab 09/29/21 HYDROcodone/APAP 5-325MG [[place] 1 tab PO Q6HR PRN #12 tab 12/22/22 5-325] Allergies Allergy/AdvReac Type Severity Reaction Status Date / Time ciprofloxacin [From Cipro] Allergy Unknown Verified 12/21/22 22:16 hydromorphone [From Dilaudid] Allergy Swelling Verified 12/23/22 14:12 Iodinated Contrast Media Allergy Rash/Hives Verified 12/21/22 22:16 iodine Allergy Rash/Hives Verified 12/21/22 22:16 morphine Allergy Rash/Hives Verified 12/21/22 22:16 phenazopyridine Allergy Unknown Verified 12/21/22 22:16 [From Pyridium] tetanus and diphtheria Allergy Rash/Hives Verified 12/21/22 22:16 toxoids Influenza Virus Vaccines AdvReac Unknown Verified 12/21/22 22:16 Review of Systems ROS Statement: Those systems with pertinent positive or pertinent negative responses have been documented in the HPI. ROS Other: All systems not noted in ROS Statement are negative. Past Medical History Past Medical History: Atrial Fibrillation, Cancer, Chest Pain / Angina, Hypertension Additional Past Medical History / Comment(s): PVC's, melanoma skin History of Any Multi-Drug Resistant Organisms: None Reported Past Surgical History: Appendectomy, Hysterectomy, Orthopedic Surgery Additional Past Surgical History / Comment(s): Melanoma removed R lower leg, bilateral total knee arthroplasties, L ear surgery d/t injury as a child, bladder suspension, colonoscopy/polypectomy. Past Anesthesia/Blood Transfusion Reactions: No Reported Reaction Past Psychological History: No Psychological Hx Reported Smoking Status: Never smoker Past Alcohol Use History: None Reported Past Drug Use History: None Reported - Past Family History Father Family Medical History: Coronary Artery Disease (CAD) Additional Family Medical History / Comment(s): CABG Mother Family Medical History: Coronary Artery Disease (CAD) Additional Family Medical History / Comment(s): CABG General Exam Limitations: no limitations General appearance: alert, in no apparent distress Head exam: Present: atraumatic, normocephalic, normal inspection Respiratory exam: Present: normal lung sounds bilaterally. Absent: respiratory distress, wheezes, rales, rhonchi, stridor Cardiovascular Exam: Present: regular rate, normal rhythm, normal heart sounds. Absent: systolic murmur, diastolic murmur, rubs, gallop, clicks Right Shoulder Exam: Present: normal inspection, full ROM, tenderness, tenderness over AC joint. Absent: swelling Vascular: Present: normal capillary refill Right Knee exam: Absent: normal inspection (hematoma over inferior knee with ecchymosis. does not involve joint. overlying abrasion no laceration ) Neurovascular tendon exam: Present: no vascular compromise Neurological exam: Present: alert, oriented X3, CN II-XII intact Psychiatric exam: Present: normal affect, normal mood Skin exam: Present: warm, dry, intact, normal color. Absent: rash Course Vital Signs 12/23/22 12/23/22 14:13 15:44 Temperature 98.2 F 97.8 F Pulse Rate 65 Respiratory 18 67 H Rate Blood Pressure 129/63 121/73 O2 Sat by Pulse 97 96 Oximetry Medical Decision Making - Medical Decision Making Was pt. sent in by a medical professional or institution (AGUILAR Johnson, PHOSPHORIC ACID OPERATOR, urgent care, hospital, or senior living...) When possible be specific @ -No Did you speak to anyone other than the patient for history (EMS, parent, family, police, friend...)? What history was obtained from this source @ -No Did you review nursing and triage notes (agree or disagree)? Why? @ -I reviewed and agree with nursing and triage notes Were old charts reviewed (outside hosp., previous admission, EMS record, old EKG, old radiological studies, urgent care reports/EKG's, senior living records)? Report findings @ -No old charts were reviewed Differential Diagnosis (chest pain, altered mental status, abdominal pain women, abdominal pain men, vaginal bleeding, weakness, fever, dyspnea, syncope, headache, dizziness, GI bleed, back pain, seizure, CVA, palpatations, mental health)? @ -Hematoma, contusion, abscess, cellulitis. This is not meant to be all- inclusive EKG interpreted by me (3pts min.). @ -None X-rays interpreted by me (1pt min.). @ -None done CT interpreted by me (1pt min.). @ -None done U/S interpreted by me (1pt. min.). @ -None done What testing was considered but not performed or refused? (CT, X-rays, U/S, labs)? Why? @ -None What meds were considered but not given or refused? Why? @ -None Did you discuss the management of the patient with other professionals (professionals i.e. AGUILAR Johnson, PHOSPHORIC ACID OPERATOR, lab, RT, psych nurse, social media designer, testing and regulating chief, teacher, commanding officer homicide squad, case maker)? Give summary @ -No Was smoking cessation discussed for >3mins.? @ -No Was critical care preformed (if so, how long)? @ -No Were there social determinants of health that impacted care today? How? (Homelessness, low income, unemployed, alcoholism, drug addiction, transportation, low edu. Level, literacy, decrease access to med. care, skilled nursing, rehab)? @ -No Was there de-escalation of care discussed even if they declined (Discuss DNR or withdrawal of care, Hospice)? DNR status @ -No What co-morbidities impacted this encounter? (DM, HTN, Smoking, COPD, CAD, Cancer, CVA, ARF, Chemo, Hep., AIDS, mental health diagnosis, sleep apnea, morbid obesity)? @ -None Was patient admitted / discharged? Hospital course, mention meds given and route, prescriptions, significant lab abnormalities, going to OR and other pertinent info. @ Discharged. Patient has hematoma we discussed symptomatic care in detail. It was wrapped in Bertin bandage. No calf pain or swelling. Undiagnosed new problem with uncertain prognosis? @ -No Drug Therapy requiring intensive monitoring for toxicity (Heparin, Nitro, Insulin, Cardizem)? @ -No Were any procedures done? @ -No Diagnosis/symptom? @ -hematoma Acute, or Chronic, or Acute on Chronic? @ -acute Uncomplicated (without systemic symptoms) or Complicated (systemic symptoms)? @ -uncomplicated Side effects of treatment? @ -No Exacerbation, Progression, or Severe Exacerbation? @ -No Poses a threat to life or bodily function? How? (Chest pain, [place], [place], pneumonia, PE, COPD, DKA, ARF, appy, cholecystitis, CVA, Diverticulitis, Homicidal, Suicidal, threat to staff... and all critical care pts) @ -No Dr. Taylor is my attending Disposition Clinical Impression: Hematoma, Right shoulder pain Disposition: HOME SELF-CARE Condition: Good Instructions (If sedation given, give patient instructions): Hematoma (ED) Additional Instructions: Ice, elevate, and compress the hematoma. Take medication as directed for shoulder pain. Do not take [place] and tramadol together. Follow-up with orthope dic specialist as planned. Return to the emergency department if you experience new, concerning, or worsening symptoms. Is patient prescribed a controlled substance at d/c from ED?: No Referrals: Alfredo De La Fuente DO [Primary Care Provider] - 1-2 days
[2022-12-23 15:45] VITALS: BP 121/73; RESP 67; TEMP 97.8
== END 2022-12-23 15:50 | disposition home or self-care (01) ==
LOC: EC 13:58
DX: S40.011A Contusion of right shoulder, initial encounter (principal); I48.91 Unspecified atrial fibrillation; I10 Essential (primary) hypertension; Z79.899 Other long term (current) drug therapy; Z88.6 Allergy status to analgesic agent; Z88.5 Allergy status to narcotic agent; Z91.041 Radiographic dye allergy status; Z88.7 Allergy status to serum and vaccine; Z88.8 Allergy status to other drugs, medicaments and biological substances; X58.XXXA Exposure to other specified factors, initial encounter
CPT/HCPCS: 99283

== ENCOUNTER → 2022-12-29 | Outpatient (CLI) | payer MEDICARE ==
--- NOTE | 2022-12-29 08:59 | CT ---
EXAMINATION TYPE: CT shoulder RT wo con CT DLP: 564.9 mGycm, Automated exposure control for dose reduction was used. DATE OF EXAM: 12/29/2022 8:16 AM COMPARISON: Extremity radiograph 12/21/2022 CLINICAL INDICATION:Female, 67 years old with history of HUMERAL FX [id number]; PHH, Humeral fracture ri ght shoulder TECHNIQUE: Axial images were obtained of the right shoulder . Additional coronal and sagittal reform atted images and soft tissue and bone window were obtained for review. 3-D reconstruction was created on a separate workstation. Contrast used: mL of None Oral contrast used: None FINDINGS: Acute fracture through the proximal right humerus. Humeral head is dislocated completely an d flipped into the axillary recess. There is comminution of the remaining portions of the proximal hu merus. There is a moderate joint effusion. No additional fractures visualized visualized portions of the chest are unremarkable. IMPRESSION: Acute comminuted right intra-articular proximal humerus fracture with complete displacement of the hu meral head which is located inferior to the glenoid in the axillary recess.
== END | disposition home or self-care (01) ==
LOC: RADCTMAIN 07:49
PROVIDERS: ATTEND Orthopaedic Surgery
DX: S42.351A Displaced comminuted fracture of shaft of humerus, right arm, initial encounter for closed fracture (principal); E11.9 Type 2 diabetes mellitus without complications; I10 Essential (primary) hypertension

== ENCOUNTER → 2023-01-02 | Outpatient (CLI) | payer MEDICARE ==
[2023-01-02 13:04] LABS: Appearance,Urine Clear (Clear); Bacteria,Urine Many /hpf; Bilirubin,Urine Negative (Negative); Blood,Urine Negative (Negative); Color,Urine Light Yellow; Glucose,Urine (UA) Negative (Negative); Ketones,Urine Negative (Negative); Leukocyte Esterase,Urine Large (Negative); Mucus,Urine Rare /hpf; Nitrite,Urine Negative (Negative); Partial Thromboplastin Time 23.9 sec (22.0-30.0); Protein,Urine Negative (Negative); Prothrombin Time 10.3 sec (9.0-12.0); RBC,Urine 1 /hpf (0-5); Specific Gravity,Urine 1.007 (1.001-1.035); Squamous Epithelial Cell,Urine 2 /hpf (0-4); Urobilinogen,Urine <2.0 mg/dL (<2.0); WBC,Urine 33 /hpf (0-5)
[2023-01-02 16:06] LABS: ALT 23 U/L (8-44); AST 25 U/L (13-35); Albumin 4.4 d/dL (3.8-4.9); Albumin/Globulin Ratio 1.57 Ratio (1.60-3.17); Alkaline Phosphatase 100 U/L (41-126); BUN/Creat Ratio 21.29 Ratio (12.00-20.00); Blood Urea Nitrogen 14.9 mg/dL (9.0-27.0); Calcium 10.3 mg/dL (8.7-10.3); Carbon Dioxide 27.8 mmol/L (21.6-31.8); Chloride 100 mmol/L (96-109); Globulin 2.8 d/dL (1.6-3.3); Glucose 110 mg/dL (70-110); Potassium 4.6 mmol/L (3.5-5.5); Sodium 139 mmol/L (135-145); Total Bilirubin 0.8 mg/dL (0.3-1.2); Total Protein 7.2 d/dL (6.2-8.2)
[2023-01-02 16:50] LABS: HCT 37.6 % (37.2-46.3); HGB 11.9 d/dL (12.0-15.0); MCHC 31.6 d/dL (32.0-37.0); MCV 94.7 FL (80.0-97.0); Mean Platelet Volume 9.2 FL (9.5-12.2); NRBC Per 100 WBC 0 X 10*3/uL (0.00-0.01); Platelet Count 449 X 10*3/uL (140-440); RBC 3.97 X 10*6/uL (4.10-5.20); WBC 12.12 X 10*3/uL (4.50-10.00)
== END | disposition home or self-care (01) ==
LOC: LABPAT 10:56
PROVIDERS: ATTEND Orthopaedic Surgery
DX: Z01.812 Encounter for preprocedural laboratory examination (principal); M19.011 Primary osteoarthritis, right shoulder
CPT/HCPCS: 80053; 81001; 85027; 85610; 85730; 87070; 93005

== ENCOUNTER 2023-01-03 06:40 | Day surgery (SDC) | payer MEDICARE ==
[2023-01-02 14:24] VITALS: BMI 37.1
[~2023-01-03 06:40] MED LIST: ACETAMINOPHEN TAB 500 MG TAB PO PRN; DEXAMETHASONE SOD PHOSPHATE 4 MG/ML 1 ML VIAL IV ONE; GABAPENTIN 300 MG CAP PO PRN; LIDOCAINE 1% (10MG/ML) FOR IV START INTRADERMA PRN; MELOXICAM 7.5 MG TAB PO PRN; ONDANSETRON 4 MG/2 ML VIAL IVP ONE; droPERidol 5 MG/2 ML VIAL IVP ONE
[2023-01-03] MEDS ORDERED: fentaNYL (PF) 50 MCG/ML 2 ML AMP IV PRN (07:00)
[2023-01-03 07:46] LABS: Glucose,Whole Blood 119 mg/dL (70-110)
[2023-01-03] MEDS: LACTATED RINGERS 1,000 ML IV SCH (07:47)
[2023-01-03] MEDS ORDERED: MIDAZOLAM 2 MG/2 ML VIAL IVP ONE (08:01)
[2023-01-03] MEDS ORDERED: fentaNYL (PF) 50 MCG/1 ML VIAL IVP ONE (08:02)
--- NOTE | 2023-01-03 08:17 | P.ANPRN ---
Procedure Note - Anesthesia - Nerve Block Performed Right Interscalene Single Time Out Performed: Yes ([id number]) Date of Procedure: 01/03/23 Procedure Start Time: 07:51 Procedure Stop Time: 07:56 Location of Patient: PreOp Indication: Acute Post-Operative Pain, Requested by Surgeon Specifically requested for management of pain by DrYanique: Gregorio Shaw Sedation Type: Sedate with meaningful contact maintained Preparation: Sterile Prep Position: Supine Catheter: None Needle Types: Pajunk Needle Gauge: 21 Ultrasound used to visualize needle placement: Yes Ultrasound used to observe medication spread: Yes Injectate: 0.5% Ropivacaine (see comment for volume) (30cc) Blood Aspirated: No Pain Paresthesia on Injection Noted: No Resistance on Injection: Normal Image Stored and Saved: Yes Events: Uneventful and Well Tolerated
[2023-01-03] MEDS ORDERED: TRANEXAMIC 1,000 MG/100ML-NACL 1,000 MG in SALINE 1 100ML.BAG IVPB ONE ×2 (08:44→09:00)
[2023-01-03] MEDS ORDERED: ceFAZolin 1,000 MG in SODIUM CHLORIDE 0.9% 1,000 ML IRRIGATION ONE (09:03)
[2023-01-03] MEDS ORDERED: LACTATED RINGERS 1,000 ML IV ONE (09:58)
[2023-01-03] MEDS ORDERED: SENNOSIDES-DOCUSATE SODIUM 1 EACH TAB PO PRN (10:10)
[2023-01-03] MEDS ORDERED: ONDANSETRON 4 MG/2 ML VIAL IVP PRN (10:10)
[2023-01-03] MEDS ORDERED: HYDROmorphone 0.5 MG/0.5 ML SYRINGE IVP PRN ×2 (10:10)
[2023-01-03] MEDS ORDERED: HYDROcodone/APAP 7.5-325MG 1 EACH TAB PO PRN (10:12)
--- NOTE | 2023-01-03 11:17 | P.OP ---
Date of Procedure: 01/03/23 Preoperative Diagnosis: Fracture dislocation right shoulder Postoperative Diagnosis: Fracture dislocation right shoulder Procedure(s) Performed: 1. Hemiarthroplasty right shoulder 2. Open reduction and internal fixation right proximal humerus fracture Implants: Biomet comprehensive shoulder system, standard humeral stem, 10 mm porous- coated. Biomet comprehensive modular head-variable offset, 46 mm, 27 mm, 46 mm Biomet comprehensive standard taper adapter Jennifer cable 1.8 mm diameter cobalt chrome 2 All components were press-fit.. Anesthesia: GETA Surgeon: Gregorio Shaw Jewellery Designer #1: Betty Valle Estimated Blood Loss (ml): 150 Pathology: none sent Condition: stable Disposition: PACU Indications for Procedure: This is a 67-year-old female that sustained a fracture dislocation of her right shoulder. Close reduction was performed to the emergency room for postoperative x-rays demonstrate that the humeral head was retained in the axillary pouch. There is also significant fracture of the proximal humerus. After discussing the surgical and nonsurgical treatment options at length, I recommended a right shoulder hemiarthroplasty and informed consent was obtained. Operative Findings: The operative findings are consistent with a fracture dislocation of the right shoulder Description of Procedure: The patient was seen in the preoperative area, consent was reviewed, and operative site was marked with a skin marker. Patient was then brought to the operating room and given preoperative antibiotics intravenously. Patient was also given 1 g of Tranexamic acid intravenously. A general anesthetic was administered by the anesthesia department. The patient was then placed in a beachchair position with the bony prominences well-padded and the head secured. The shoulder was then prepped and draped in the usual sterile fashion. A universal timeout was then performed, which confirmed the patient's name, surgical site, ALLERGIES, and consent. A standard deltopectoral approach was performed. The skin and subcutaneous tissue was sharply dissected down to the deltoid fascia. The cephalic vein was then identified and retracted medially. The deltopectoral interval was then utilized to expose the subscapularis tendon. A retractor was then placed under the coracobrachialis tendon retracted medially, and the deltoid. The axillary nerve is palpated and protected throughout the procedure. The subscapularis tendon was then released and retracted medially. Upon entry of the glenohumeral joint, the hematoma was evacuated. There is significant amount of scar tissue which had formed. The humeral head was then palpated axillary pouch an easily removed without difficulty. The humeral head was measured. The proximal humerus was inspected and found to have 2 large fracture fragments, one including the greater tuberosity. Next the humeral stem was prepared. Sequential reaming was performed to the appropriate size reamer. The humerus was then broached sequentially to the same size as the reamer. After the broaches fully seated, the broach handle was removed. The trial head was then placed and the shoulder was reduced. Shoulder was stable throughout range of motion and there appeared to be no impingement or bony fragments within the glenoid. The broach was then removed. The final humeral implant was impacted at 30 retroversion and fully seated. 2 cables were placed around the proximal humerus to hold the anterior fragment. The greater tuberosity fragment was repaired with suture to the proximal humerus. The final humeral head component was impacted on the stem. The shoulder was then reduced and taken through a range of motion and found to be stable. Shoulder was then irrigated with pulsatile lavage. The shoulder was then irrigated with Irrisept solution. The subscapularis was then repaired with #1 Vicryl. The deltopectoral interval was then closed with #1 Vicryl as well. The subcutaneous tissues were closed with 3-0 Vicryl followed by 30 strata fix suture. Exofin glue was placed on the skin. A sterile dressing was then applied, the patient was transported to the recovery room in an arm sling in stable condition. The assistant case manager AGUILAR Cary was required due the complexity of surgery and the need for a skilled corporate legal assistant.
--- NOTE | 2023-01-03 13:17 | XR ---
EXAMINATION TYPE: XR shoulder limited RT DATE OF EXAM: 01/03/2023 COMPARISON: NONE TECHNIQUE: Two views submitted HISTORY: Post op FINDINGS: There is a prosthetic shoulder in near anatomic alignment. There is soft tissue edema and small amou nt of air in the soft tissues likely postsurgical. Subsegmental changes at the right lung base likely related to atelectasis from reduced inspiration. AC joint arthropathy noted.. IMPRESSION: 1. Postoperative change. Appears in near-anatomic alignment
[2023-01-03] MEDS: SODIUM CHLORIDE 0.9% 1,000 ML IV SCH ×2 (15:07→16:06)
[2023-01-03] MEDS ORDERED: DEXTROSE 50% SYRINGE 50 ML IVP PRN ×2 (17:09)
[2023-01-03] MEDS: INSULIN ASPART (NovoLOG) 100 UNIT/ML VIAL SQ SCH ×2 (18:15→20:46)
[2023-01-03] MEDS: FLECAINIDE 50 MG TAB PO SCH (20:32)
[2023-01-03 20:42] LABS: Glucose,Whole Blood 178 mg/dL (70-110)
[2023-01-04 00:45] VITALS: TEMP 98.4
[2023-01-04] MEDS: HYDROmorphone 0.5 MG/0.5 ML SYRINGE IVP PRN ×2 (02:11→05:25)
[2023-01-04] MEDS: CYCLOBENZAPRINE 10 MG TAB PO PRN ×2 (03:16→11:18)
[2023-01-04] MEDS: HYDROcodone/APAP 7.5-325MG 1 EACH TAB PO PRN ×2 (05:24→11:17)
[2023-01-04] MEDS: LACTATED RINGERS 1,000 ML IV SCH (06:07)
[2023-01-04 06:26] LABS: Glucose,Whole Blood 130 mg/dL (70-110)
[2023-01-04] MEDS: INSULIN ASPART (NovoLOG) 100 UNIT/ML VIAL SQ SCH ×2 (06:35→11:14)
[2023-01-04] MEDS: SODIUM CHLORIDE 0.9% 1,000 ML IV SCH (06:37)
[2023-01-04 06:55] LABS: HGB 10.7 gm/dL (11.4-16.0); Hypochromasia Slight; MCH 31.5 pg (25.0-35.0); MCHC 33.4 g/dL (31.0-37.0); MCV 94.4 fL (80.0-100.0); Mean Platelet Volume 7.9; Platelet Count 269 k/uL (150-450); RBC 3.39 m/uL (3.80-5.40); RDW 14.5 % (11.5-15.5); WBC 13.6 k/uL (3.8-10.6)
[2023-01-04 06:58] VITALS: BP 135/72; PULSE 84; RESP 20
[2023-01-04 08:07] LABS: Band Neutrophils % 2 %; Lymphocytes # (M) 2.45 k/uL (1.0-4.8); Monocytes # (M) 0.95 k/uL (0-1.0); Neutrophils % (M) 73 %; Nucleated Red Blood Cells 0 /100 WBC (0-0); Total Cells Counted 100
[2023-01-04] MEDS: FLECAINIDE 50 MG TAB PO SCH (08:34)
[2023-01-04] MEDS ORDERED: CYANOCOBALAMIN 500 MCG TAB PO SCH (09:00)
[2023-01-04] MEDS ORDERED: APIXABAN 5 MG TAB PO SCH (09:00)
[2023-01-04] MEDS ORDERED: MULTIVITAMINS, THERA 1 EACH TAB PO SCH (09:00)
[2023-01-04] MEDS ORDERED: ATORVASTATIN 10 MG TAB PO SCH (09:00)
--- NOTE | 2023-01-04 09:26 | P.DS ---
Providers Expected date of discharge: 01/04/23 Attending physician: Gregorio Shaw Consults: 01/03/23 10:10 Consult Physician Routine Consulting Provider: Joel Nagy Consult Reason/Comments: medical management Do you want consulting provider notified?: Yes Primary care physician: Alfredo De La Fuente - Discharge Diagnosis(es) (1) Fracture dislocation of right shoulder joint Current Visit: Yes Status: Acute (2) Proximal humerus fracture Current Visit: Yes Status: Acute (3) S/P ORIF (open reduction internal fixation) fracture Current Visit: Yes Status: Acute (4) Status post right shoulder hemiarthroplasty Current Visit: Yes Status: Acute Hospital Course: This is a 67-year-old female who sustained a fracture dislocation of her right shoulder with subsequent closed reduction in the emergency room. Postreduction x-rays revealed displacement of the humeral head and fracture of the proximal humerus. The patient presented for evaluation as an outpatient. After discussion and consideration patient elects to proceed with ORIF right proximal humerus fracture and hemiarthroplasty of the right shoulder. The patient is seen preoperatively by Dr. Shaw and medically cleared for surgery by their primary care physician. Patient is admitted to [facility] on 01/03/2023 for ORIF right proximal humerus fracture and hemiarthroplasty of the right shoulder.. The procedure is performed without complication or sequelae. The patient is doing well postoperatively. Labs and vital signs are stable on day of discharge. On day of discharge the patient's shoulder incision is healing well. There is minimal erythema. There is no drainage noted at this time. There is minimal soft tissue swelling to the shoulder. Patient has full hand and wrist motion without difficulty or pain. Neurovascular status to the right upper extremity is intact. Patient is discharged home in good condition. Please see med rec for accurate list of home medications. Plan - Discharge Summary Discharge Rx Participant: No New Discharge Prescriptions: New Sennosides [Senokot] 2 tab PO DAILY PRN #60 tablet PRN Reason: Constipation HYDROcodone/APAP 7.5-325MG [[place] 7.5-325] 1 - 2 tab PO Q6H PRN #32 tab PRN Reason: Pain Cyclobenzaprine [Flexeril] 10 mg PO TID PRN 7 Days #21 tablet PRN Reason: Muscle Spasm No Action Multivitamins, Thera [Multivitamin (formulary)] 1 tab PO DAILY Losartan [Cozaar] 25 mg PO DAILY Flecainide [Tambocor] 100 mg PO Q12HR 30 Days #120 tab atenoloL [Tenormin] 50 mg PO DAILY 30 Days #30 tab HYDROcodone/APAP 5-325MG [[place] 5-325] 1 tab PO Q6HR PRN #12 tab PRN Reason: Pain Cyclobenzaprine [Flexeril] 10 mg PO TID PRN PRN Reason: Pain metFORMIN HCL 500 mg PO BID Rosuvastatin Calcium 5 mg PO DAILY Cyanocobalamin (Vitamin B-12) [Vitamin B-12] 1,000 mcg PO DAILY Apixaban [Eliquis] 5 mg PO BID 30 Days #60 tab Discharge Medication List Cyanocobalamin (Vitamin B-12) [Vitamin B-12] 1,000 mcg PO DAILY 09/27/21 [History] Losartan [Cozaar] 25 mg PO DAILY 09/27/21 [History] Multivitamins, Thera [Multivitamin (formulary)] 1 tab PO DAILY 09/27/21 [History] Rosuvastatin Calcium 5 mg PO DAILY 09/27/21 [History] Apixaban [Eliquis] 5 mg PO BID 30 Days #60 tab 09/28/21 [Rx] Flecainide [Tambocor] 100 mg PO Q12HR 30 Days #120 tab 09/29/21 [Rx] atenoloL [Tenormin] 50 mg PO DAILY 30 Days #30 tab 09/29/21 [Rx] HYDROcodone/APAP 5-325MG [[place] 5-325] 1 tab PO Q6HR PRN #12 tab 12/22/22 [Rx] Cyclobenzaprine [Flexeril] 10 mg PO TID PRN 01/02/23 [History] metFORMIN HCL 500 mg PO BID 01/02/23 [History] HYDROcodone/APAP 7.5-325MG [[place] 7.5-325] 1 - 2 tab PO Q6H PRN #32 tab 01/03/23 [Rx] Sennosides [Senokot] 2 tab PO DAILY PRN #60 tablet 01/03/23 [Rx] Cyclobenzaprine [Flexeril] 10 mg PO TID PRN 7 Days #21 tablet 01/04/23 [Rx] Follow up Appointment(s)/Referral(s): Gregorio Shaw DO [Doctor of Osteopathic Medicine] - 2 Weeks Patient Instructions/Handouts: *Surgery [facility] - ([place]) Shoulder Arthroscopy Post-Op Instructions Activity/Diet/Wound Care/Special Instructions: Maintain sling at all times. May remove for hygiene. No use of the right upper extremity. Dressing may be removed by home care nurse or by patient in 7 days. Then change dressing twice daily until follow up. May shower with initial dressing intact and after removal. If dressing become saturated, please remove. Please follow-up with [facility] and call with any questions or concerns, . Discharge Disposition: HOME WITH HOME HEALTH SERVICES
--- NOTE | 2023-01-04 14:03 | P.CONS ---
History of Present Illness - Reason for Consult Consult date: 01/04/23 Medical management - History of Present Illness History of present illness; this is 67-year-old lady with medicine for and was evaluated in the ER and underwent dislocation of her right shoulder with subsequent closed reduction in the emergency room. The patient followed up up outpatient with orthopedics and this suggested to proceed with ORIF right proximal humerus fracture and hemiarthroplasty of the right shoulder. Postoperatively the medicine team were consulted for medical management REVIEW OF SYSTEMS: CONSTITUTIONAL: No fever, no malaise, no fatigue. HEENT: No recent visual problems or hearing problems. Denied any sore throat. CARDIOVASCULAR: No chest pain, orthopnea, PND, no palpitations, no syncope. PULMONARY: No shortness of breath, no cough, no hemoptysis. GASTROINTESTINAL: No diarrhea, no nausea, no vomiting, no abdominal pain. NEUROLOGICAL: No headaches, no weakness, no numbness. HEMATOLOGICAL: Denies any bleeding or petechiae. GENITOURINARY: Denies any burning micturition, frequency, or urgency. MUSCULOSKELETAL/RHEUMATOLOGICAL: Shoulder pain ENDOCRINE: Denies any polyuria or polydipsia. The rest of the 14-point review of systems is negative. PHYSICAL EXAMINATION: GENERAL: The patient is alert and oriented x3, not in any acute distress. Well developed, well nourished. HEENT: Pupils are round and equally reacting to light. EOMI. No scleral icterus. No conjunctival pallor. Normocephalic, atraumatic. No pharyngeal erythema. No thyromegaly. CARDIOVASCULAR: S1 and S2 present. No murmurs, rubs, or gallops. PULMONARY: Chest is clear to auscultation, no wheezing or crackles. ABDOMEN: Soft, nontender, nondistended, normoactive bowel sounds. No palpable organomegaly. MUSCULOSKELETAL: Right shoulder sling seen EXTREMITIES: No cyanosis, clubbing, or pedal edema. NEUROLOGICAL: Gross neurological examination did not reveal any focal deficits. SKIN: No rashes. Assessment and plan Fracture dislocation of right shoulder joint Proximal humerus fracture History of fall Monitor vital signs Monitor CBC Monitor CMP Continue pain management per orthopedics Continue DVT prophylaxis per orthopedics Labs and medication were reviewed.. Continue same treatment. Continue with symptomatic treatment. Resume home medication. Monitor labs and vitals. DVT and GI prophylaxis. Further recommendations as per clinical course of the patient Past Medical History Past Medical History: Atrial Fibrillation, Cancer, Chest Pain / Angina, Diabetes Mellitus, Hypertension Additional Past Medical History / Comment(s): PVC's, melanoma skin History of Any Multi-Drug Resistant Organisms: None Reported Past Surgical History: Appendectomy, Hysterectomy, Orthopedic Surgery Additional Past Surgical History / Comment(s): Melanoma removed R lower leg, bilateral total knee arthroplasties, L ear surgery d/t injury as a child, bladder suspension, colonoscopy/polypectomy. Past Anesthesia/Blood Transfusion Reactions: No Reported Reaction Past Psychological History: No Psychological Hx Reported Additional Psychological History / Comment(s): Pt resides with her spouse. She is independent. Smoking Status: Former smoker Past Alcohol Use History: None Reported Additional Past Alcohol Use History / Comment(s): Pt started smoking in 1967 and quit in 1978 Past Drug Use History: None Reported - Past Family History Father Family Medical History: Coronary Artery Disease (CAD) Additional Family Medical History / Comment(s): CABG Mother Family Medical History: Coronary Artery Disease (CAD), CVA/TIA, Hypertension, Renal Disease Additional Family Medical History / Comment(s): CABG Medications and Allergies Home Medications Medication Instructions Recorded Confirmed Type Cyanocobalamin (Vitamin B-12) 1,000 mcg PO DAILY 09/27/21 01/02/23 History [Vitamin B-12] Losartan [Cozaar] 25 mg PO DAILY 09/27/21 01/02/23 History Multivitamins, Thera [Multivitamin 1 tab PO DAILY 09/27/21 01/02/23 History (formulary)] Rosuvastatin Calcium 5 mg PO DAILY 09/27/21 01/02/23 History Apixaban [Eliquis] 5 mg PO BID 30 Days #60 tab 09/28/21 01/02/23 Rx Flecainide [Tambocor] 100 mg PO Q12HR 30 Days #120 tab 09/29/21 01/02/23 Rx atenoloL [Tenormin] 50 mg PO DAILY 30 Days #30 tab 09/29/21 01/02/23 Rx HYDROcodone/APAP 5-325MG [Dexter 1 tab PO Q6HR PRN #12 tab 12/22/22 01/02/23 Rx 5-325] Cyclobenzaprine [Flexeril] 10 mg PO TID PRN 01/02/23 01/02/23 History metFORMIN HCL 500 mg PO BID 01/02/23 01/02/23 History HYDROcodone/APAP 7.5-325MG [Dexter 1 - 2 tab PO Q6H PRN #32 tab 01/03/23 Rx 7.5-325] Sennosides [Senokot] 2 tab PO DAILY PRN #60 tablet 01/03/23 Rx Cyclobenzaprine [Flexeril] 10 mg PO TID PRN 7 Days #21 tablet 01/04/23 Rx Allergies Allergy/AdvReac Type Severity Reaction Status Date / Time ciprofloxacin [From Cipro] Allergy Unknown Verified 01/03/23 07:07 hydromorphone [From Dilaudid] Allergy Swelling Verified 01/03/23 07:07 Iodinated Contrast Media Allergy Rash/Hives Verified 01/03/23 07:07 iodine Allergy Rash/Hives Verified 01/03/23 07:07 morphine Allergy Rash/Hives Verified 01/03/23 07:07 nitroglycerin Allergy Itching Verified 01/03/23 07:07 tetanus and diphtheria Allergy Rash/Hives Verified 01/03/23 07:07 toxoids Influenza Virus Vaccines AdvReac Unknown Verified 01/03/23 07:07 Physical Exam Vitals: Vital Signs Temp Pulse Resp BP Pulse Ox 01/04/23 06:57 98.4 F 84 20 135/72 98 01/04/23 00:44 98.4 F 85 16 103/68 95 01/03/23 20:00 97.7 F 81 17 102/64 95 01/03/23 14:33 97.0 F L 80 16 102/64 92 L Intake and Output 01/03/23 01/04/23 01/04/23 22:59 06:59 14:59 Intake Total 190 560 Balance 190 560 Intake: Intake, IV Titration 190 560 Amount Sodium Chloride 0.9% 1, 140 560 000 ml @ 70 mls/hr IV . [id number] [facility] Rx#:[id number] ceFAZolin 2 gm In Sodium 50 Chloride 0.9% 50 ml @ 100 mls/hr IVPB Q8H [facility] Rx#: [id number] Other: Voiding Method Toilet # Voids 2 4 Weight 104.326 kg Results CBC & Chem 7: 01/04/23 06:17 Labs: Abnormal Lab Results - Last 24 Hours (Table) 01/03/23 01/04/23 01/04/23 Range/Units 20:41 06:17 06:25 WBC 13.6 H (3.8-10.6) k/uL RBC 3.39 L (3.80-5.40) m/uL Hgb 10.7 L (11.4-16.0) gm/dL Hct 32.0 L (34.0-46.0) % Neutrophils # (Manual) 10.20 H (1.3-7.7) k/uL POC Glucose (mg/dL) 178 H 130 H (70-110) mg/dL Hemoglobin A1c (<=6.0) % 01/04/23 Range/Units 08:12 WBC (3.8-10.6) k/uL RBC (3.80-5.40) m/uL Hgb (11.4-16.0) gm/dL Hct (34.0-46.0) % Neutrophils # (Manual) (1.3-7.7) k/uL POC Glucose (mg/dL) (70-110) mg/dL Hemoglobin A1c 6.2 H (<=6.0) %
== END 2023-01-04 12:05 | disposition home health service (06) ==
LOC: OR 06:40 → 4SSUR 10:09 → OR 01-04 12:05
PROVIDERS: ATTEND Orthopaedic Surgery
DX: S42.201A Unspecified fracture of upper end of right humerus, initial encounter for closed fracture (principal); W22.8XXA Striking against or struck by other objects, initial encounter; I48.91 Unspecified atrial fibrillation; I10 Essential (primary) hypertension; E11.9 Type 2 diabetes mellitus without complications; I49.3 Ventricular premature depolarization; Z85.820 Personal history of malignant melanoma of skin; Z95.810 Presence of automatic (implantable) cardiac defibrillator; Z91.041 Radiographic dye allergy status; Z88.5 Allergy status to narcotic agent; Z88.7 Allergy status to serum and vaccine; Z88.1 Allergy status to other antibiotic agents; Z88.6 Allergy status to analgesic agent; Z87.891 Personal history of nicotine dependence; Z79.01 Long term (current) use of anticoagulants; Z79.84 Long term (current) use of oral hypoglycemic drugs; Z79.899 Other long term (current) drug therapy; Z96.653 Presence of artificial knee joint, bilateral
CPT/HCPCS: 23470; 64415; 85025; 83036; 73020; C1713; C1776; J2250; J1100; J0690 ×3; J2405; J1170; J3010